=== PATIENT | female | born 1985 | race Caucasian/White ===

== ENCOUNTER → 2017-02-20 | Outpatient (CLI) | payer SELFPAY ==
[2017-02-20 12:44] LABS: Basophils % (A) 1 %; CH 29.4; CHCM 33.6; Eosinophils # (A) 0.1 k/uL (0-0.7); Eosinophils % (A) 1 %; HCT 39.9 % (34.0-46.0); HDW 2.46; HGB 13.6 gm/dL (11.4-16.0); Luc # (Auto) 0.18; Luc % (Auto) 2; Lymphocytes # (A) 2.3 k/uL (1.0-4.8); Lymphocytes % (A) 30 %; MCHC 34.2 g/dL (31.0-37.0); MCV 87.7 fL (80.0-100.0); Mean Platelet Volume 7.4; Monocytes # (A) 0.5 k/uL (0-1.0); Monocytes % (A) 6 %; Neutrophils # (A) 4.7 k/uL (1.3-7.7); Neutrophils % (A) 60 %; RBC 4.54 m/uL (3.80-5.40); RDW 12.5 % (11.5-15.5); WBC 7.8 k/uL (3.8-10.6); WBC (Perox) 7.53
== END | disposition home or self-care (01) ==
LOC: LABWHC1 12:27
PROVIDERS: ATTEND Specialist
DX: Z01.812 Encounter for preprocedural laboratory examination (principal)
CPT/HCPCS: 36415; 85025

== ENCOUNTER → 2017-07-05 | Outpatient (CLI) | payer SELFPAY ==
[2017-07-05 12:53] LABS: CH 29.2; CHCM 32.6; HDW 2.46; HGB 13.5 gm/dL (11.4-16.0); MCH 29.6 pg (25.0-35.0); MCV 89.9 fL (80.0-100.0); Mean Platelet Volume 6.8; RBC 4.56 m/uL (3.80-5.40); RDW 12.3 % (11.5-15.5); WBC 8.4 k/uL (3.8-10.6)
== END | disposition home or self-care (01) ==
LOC: LABWHC1 12:25
PROVIDERS: ATTEND Obstetrics & Gynecology
DX: O20.0 Threatened abortion (principal); Z3A.00 Weeks of gestation of pregnancy not specified
CPT/HCPCS: 36415; 84702; 85027; 86850; 86900; 86901

== ENCOUNTER → 2017-07-07 | Outpatient (CLI) | payer SELFPAY | END | disposition home or self-care (01) | LOC: LABWHC1 16:36 | PROVIDERS: ATTEND Obstetrics & Gynecology | DX: O20.0 Threatened abortion (principal) | CPT/HCPCS: 36415; 84702 ==

== ENCOUNTER 2017-12-30 20:35 | Outpatient (CLI) | payer OTHER ==
[2017-12-30 21:40] VITALS: BP 135/71; PULSE 135; RESP 16; TEMP 97.4
--- NOTE | 2017-12-30 22:06 | US ---
EXAMINATION TYPE: US OB >= 14 wk fetus DATE OF EXAM: 12/30/2017 COMPARISON: None CLINICAL HISTORY: BleedingBleeding x 1 time today not currently. TECHNIQUE: Transabdominal (TA) GESTATIONAL AGE / DATING Physician Established: (30 weeks/2 days) EDC: 03/08/2018 Dates by LMP: (30 weeks/2 days) EDC: 03/08/2018 Dates by First Scan: No previous this is first scan Dates by Current Scan: (31 weeks/1 days) EDC: 02/28/2018 SURVEY IUP: Single PLACENTA: Fundal PREVIA: No Previa MARISELA: 18.2 cm Normal CERVICAL LENGTH (transabdominal: norm > 3.0cm): 3.6 cm BIOMETRY PRESENTATION: Breech LIE: Longitudinal BPD: 8.1 cm 32 weeks / 3 days HC: 29.3 cm 32 weeks / 3 days AC: 27 cm 31 weeks / 1 days FL: 6.1 cm 31 weeks / 4 days ESTIMATED WEIGHT IN GRAMS: 1769 grams ESTIMATED WEIGHT IN LBS/OZ: 3 lbs. 14 oz. WEIGHT PERCENTAGE BASED ON ESTABLISHED DATES: 77.7% HC/AC: 1.09cm Normal FL/AC: 75.1 Normal HEART RATE: 153 bpm RHYTHM: Normal MATERNAL WALL MEASUREMENT: 2.4 cm from skin to anterior uterine wall (if exam limited due to body hab itus). Viable IUP 31w3d YOVANNY 02/28/2018 HR 153BPM IMPRESSION: Viable IUP 31w3d YOVANNY 02/28/2018 HR 153BPM
--- NOTE | 2018-01-17 08:24 | P.MSEPDOC ---
Presenting Problems - Arrival Data Date of Arrival on Unit: 12/30/17 Time of Arrival on Unit: 20:35 Mode of Transport: Portable - Complaint OB-Reason for Admission/Chief Complaint: Vaginal Bleeding Medical History - Information : 4 Para: 3 Term: 3 : 0 Abortions: Spontaneous or Elective: 0 Number of Living Children: 3 - Gestational Age Gestational Age by YOVANNY (wks/days): 30 Weeks and 2 Days - History Complications: Prior Review of Systems - Review of Systems Constitutional: No problems Breast: No problems ENT: No problems Cardiovascular: No problems Respiratory: No problems Gastrointestinal: No problems Genitourinary: No problems Musculoskeletal: No problems Neurological: No problems Skin: No problems Vital Signs - Temperature Temperature: 97.4 F Temperature Source: Oral - Pulse Right Brachial Pulse Rate: 135 Pulse Assessment Method: Automatic Cuff - Respirations Respiratory Rate: 16 Oxygen Delivery Method: Room Air O2 Sat by Pulse Oximetry: 97 - Blood Pressure Right Arm Blood Pressure: 135/71 Blood Pressure Mean: 92 Blood Pressure Source: Automatic Cuff Medical Screen Scoring (Pre) - Cervical Exam Dilation: Exam Deferred Effacement: Exam Deferred Membranes: Intact - Uterine Contractions Frequency: N/A - Maternal Vital Signs Maternal Temperature: N/A Maternal Blood Pressure: N/A Signs of Preeclampsia: N/A Maternal Respirations: N/A - Pain Assessment Pain Scale Used: Numeric (1 - 10) Pain Intensity: 0 - Assessment Baseline FHR: 140 Heart Rate - NICHD Category: Category I (Normal) = 0 NST: Reactive Position: N/A Station: N/A - Total Score Total Score (Pre): 0 - Level of Risk Level of Risk: Low (0-5) Physician Notification (Pre) - Physician Notified Physician Notified Date: 12/30/17 Physician Notified Time: 21:16 Physician/Practitioner Notifed:: Dr. Davis Spoke With: Dr. Davis New Order Received: Yes - Notification Comment Comment: Dr. Davis called and given report on pt in triage. Pt c/o. reactive nst. Vitals signs. No visualized bright red bleeding. Spec exam with visualized old brown blood and white discharge on spec. Orders recieved to monitor pt for next to hours and to watch for bleeding. To order complete OB u/ s and to call with results. Medical Screen Scoring (Post) - Cervical Exam Dilation: Exam Deferred Effacement: Exam Deferred Membranes: Intact - Uterine Contractions Frequency: N/A Duration: N/A Intensity: N/A - Maternal Vital Signs Maternal Temperature: N/A Maternal Blood Pressure: N/A Signs of Preeclampsia: N/A - Pain Assessment Pain Scale Used: Numeric (1 - 10) Pain Intensity: 0 - Total Score Total Score (Post): 0 - Post Treatment Level of Risk Post Treatment Level of Risk: Low (0-5) Physician Notification (Post) - Physician Notified Physician Notified Date: 12/30/17 Physician Notified Time: 21:53 Physician/Practitioner Notified:: Dr. Davis Spoke With: Dr. Davis New Order Received: Yes - Notification Comment Comment: Dr. Davis called and given results of u/s. Orders recieved to continue to monitor pt for two hours and watch for vaginal bleeding. If no bleeding d/c pt to home, to be on pelvic rest and to call and follow up with Dr. Cornejo in the am and to be seen in office. Disposition - Disposition OB Disposition: Discharge to home Discharge Date: 12/30/17 Discharge Time: 23:20 I agree with the RN Medical Screening Exam: Yes Risk & Benefit of care provided described in d/c instruction: Yes Diagnosis: 30 WEEKS GESTATION OF
== END 2017-12-30 23:20 | disposition home or self-care (01) ==
LOC: FBPOP 20:35
PROVIDERS: ATTEND Obstetrics & Gynecology
DX: O46.93 Antepartum hemorrhage, unspecified, third trimester (principal); Z3A.30 30 weeks gestation of pregnancy
CPT/HCPCS: 59025; 76805; G0463; 99213

== ENCOUNTER 2018-02-23 16:14 | Outpatient (CLI) | payer OTHER ==
[2018-02-23 17:07] VITALS: BP 134/79; PULSE 80; RESP 18
[2018-02-23 17:08] VITALS: TEMP 97.2
--- NOTE | 2018-03-11 13:46 | P.MSEPDOC ---
Presenting Problems - Arrival Data Date of Arrival on Unit: 02/23/18 Time of Arrival on Unit: 16:15 Mode of Transport: Ambulatory - Complaint OB-Reason for Admission/Chief Complaint: Other Comment: Cramping Medical History - Information : 4 Para: 3 Term: 3 : 0 Abortions: Spontaneous or Elective: 0 Number of Living Children: 3 - Gestational Age Gestational Age by YOVANNY (wks/days): 37 Weeks and 3 Days - History Comment: Vaginal bleeding on and off x 2months. Review of Systems - Review of Systems Constitutional: No problems Breast: No problems ENT: No problems Cardiovascular: No problems Respiratory: No problems Gastrointestinal: No problems Genitourinary: No problems Musculoskeletal: No problems Neurological: No problems Skin: No problems Vital Signs - Temperature Temperature: 97.2 F Temperature Source: Oral - Pulse Pulse Oximetery Pulse Rate: 80 Pulse Assessment Method: Pulse Oximetry - Respirations Respiratory Rate: 18 - Blood Pressure Right Arm Sitting Blood Pressure: 134/79 Blood Pressure Mean: 97 Blood Pressure Source: Automatic Cuff Medical Screen Scoring (Pre) - Cervical Exam Dilation: Exam Deferred Effacement: Exam Deferred Membranes: Intact - Uterine Contractions Frequency: N/A Duration: N/A Intensity: N/A - Maternal Vital Signs Maternal Temperature: N/A Maternal Blood Pressure: N/A Signs of Preeclampsia: N/A Maternal Respirations: N/A - Pain Assessment Pain Location and Character: Abdomen Pain Scale Used: Numeric (1 - 10) Pain Intensity: 3 Pain Description: *Acute, Cramping Pain Frequency: Intermittent Pain Duration Units: Minutes Pain Behavior: None Exhibited Pain Aggravating Factors: None Non-Pharmacological Interventions: Environmental Control, Reduce Environmental Stimuli - Maternal Trauma Maternal Trauma: N/A - Assessment Baseline FHR: 130 Heart Rate - NICHD Category: Category I (Normal) = 0 NST: Reactive Position: N/A Station: N/A - Total Score Total Score (Pre): 0 - Level of Risk Level of Risk: Low (0-5) Physician Notification (Pre) - Physician Notified Physician Notified Date: 02/23/18 Physician Notified Time: 16:40 Physician/Practitioner Notifed:: Dr Smith Spoke With: Dr Smith New Order Received: Yes Disposition - Disposition OB Disposition: Discharge to home Discharge Date: 02/23/18 Discharge Time: 17:25 I agree with the RN Medical Screening Exam: Yes Risk & Benefit of care provided described in d/c instruction: Yes Diagnosis: FALSE LABOR AT OR AFTER 37 COMPLETED WEEKS OF GESTATION
== END 2018-02-23 17:25 | disposition home or self-care (01) ==
LOC: FBPOP 16:14
PROVIDERS: ATTEND Obstetrics & Gynecology Obstetrics
DX: O47.1 False labor at or after 37 completed weeks of gestation (principal); Z3A.37 37 weeks gestation of pregnancy
CPT/HCPCS: 59025; G0463; 99213

== ENCOUNTER 2018-03-05 06:22 | Inpatient (IN) | payer OTHER ==
[2018-03-05] MEDS ORDERED: CITRIC ACID-SODIUM CITRATE 15 ML CUP PO ONE (06:47)
[2018-03-05] MEDS ORDERED: ceFAZolin IN SWFI 2 GM/20 ML SYRINGE IVP ONE (06:47)
[2018-03-05] MEDS ORDERED: LACTATED RINGERS 1,000 ML IV ONE (06:47)
[2018-03-05 07:00] VITALS: BMI 35.2
[2018-03-05 07:11] LABS: Basophils % (A) 0 %; Eosinophils # (A) 0.1 k/uL (0-0.7); Eosinophils % (A) 1 %; HCT 32.5 % (34.0-46.0); Hypochromasia Slight; Lymphocytes # (A) 1.8 k/uL (1.0-4.8); Lymphocytes % (A) 14 %; MCHC 33.8 g/dL (31.0-37.0); MCV 79.9 fL (80.0-100.0); Monocytes # (A) 0.5 k/uL (0-1.0); Monocytes % (A) 4 %; Neutrophils # (A) 10.3 k/uL (1.3-7.7); Neutrophils % (A) 80 %; Platelet Count 192 k/uL (150-450); Poikilocytosis Slight; RBC 4.06 m/uL (3.80-5.40)
[2018-03-05] MEDS ORDERED: KETOROLAC 30 MG/ML 1 ML VIAL ONE (07:15)
[2018-03-05] MEDS ORDERED: NALBUPHINE 10 MG/ML VIAL (10ML MDV) ONE (07:15)
[2018-03-05] MEDS ORDERED: OXYTOCIN 10 UNIT/ML 1 ML VIAL ONE (07:15)
[2018-03-05] MEDS ORDERED: fentaNYL (PF) 50 MCG/ML 2 ML AMP ONE (07:15)
[2018-03-05] MEDS ORDERED: ONDANSETRON 4 MG/2 ML VIAL ONE (07:15)
[2018-03-05] MEDS ORDERED: MORPHINE SULFATE (PF) 0.3 MG/0.3 ML SYR ONE (07:15)
--- NOTE | 2018-03-05 07:25 | P.HPOB ---
History of Present Illness H&P Date: 03/05/18 Chief Complaint: Strong regular uterine contractions This is a 32-year-old white female 4 para 3003 EDC 03/13/2018 at 38-6/7 weeks' gestation. Patient has had 3 previous sections and is declining option for . She is scheduled for section next week, however presents this morning with strong regular uterine contractions. Cervix is 4-5 cm dilated. Patient is in active labor and is requesting section at this time. Tubal ligation is offered and declined. Past medical history is significant for hypothyroidism, irritable bowel syndrome , and asthma. Past surgical history sections 3, tubal ligation in 2012 with reversal in 2016. Current medications albuterol inhaler twice daily as needed, Synthroid 50 MCG's daily, vitamin daily. ALLERGIES include latex to which reports a rash, Vicodin to which reports emesis. Family history significant for hypertension, stroke, kidney disease and vascular concerns. Social history patient is remarried, she's never been a smoker, she denies alcohol or drug use. history blood type is A-, rubella status immune. Urine culture, hepatitis B surface antigen, HIV testing, gonorrhea Chlamydia cultures, group B strep cultures all negative. One-hour Glucola elevated, 3 hour GTT within normal limits. On exam this is a pleasant white female, she is 5 foot 5 inches, 212 pounds, blood pressure initially 138/92, patient is afebrile. The general physical exam is within normal limits. Cervix is 4-5 cm dilated, vertex presentation, intact, 80% effaced, -1. heart rate is consistent with reactive NST. Patient's chest is clear to auscultation, trace peripheral edema. Impression: 38-6/7 weeks intrauterine , active labor, here for repeat section declining option for , declining option for tubal ligation. Plan: For repeat low transverse section now. Dr. Pina in the hospital and available for assistance. All questions answered. Review of Systems Constitutional: Reports as per HPI Past Medical History Past Medical History: Asthma, Thyroid Disorder History of Any Multi-Drug Resistant Organisms: None Reported Past Surgical History: Section Additional Past Surgical History / Comment(s): C section x 3, during 1 csection cervix was sewn shut so had a sx to reopen Past Anesthesia/Blood Transfusion Reactions: Family History of Problems w/ Anesthesia, Motion Sickness, Postoperative Nausea & Vomiting (PONV) Additional Past Anesthesia/Blood Transfusion Reaction / Comment(s): fam hx : PONV Past Psychological History: Anxiety Smoking Status: Never smoker Past Alcohol Use History: None Reported Additional Past Alcohol Use History / Comment(s): smoking: started [id number] Past Drug Use History: None Reported - Past Family History Mother Family Medical History: Cancer, Osteoarthritis (OA) Additional Family Medical History / Comment(s): Mom's mom: CA breast & colon Father Family Medical History: Rheumatoid Arthritis (RA) Medications and Allergies Home Medications Medication Instructions Recorded Confirmed Type Albuterol Inhaler [Ventolin Hfa 1 - 2 puff BID 04/20/15 03/05/18 History Inhaler] Pnv No.95/Ferrous Fum/Folic AC 1 each PO DAILY 12/30/17 03/05/18 History [ Multivitamin Tablet] Allergies Allergy/AdvReac Type Severity Reaction Status Date / Time codeine Allergy Nausea Verified 03/05/18 06:28 hydrocodone bitartrate Allergy Nausea & Verified 03/02/18 13:00 [From Vicodin] Vomiting & Diarrhea latex Allergy Rash/Hives Verified 03/02/18 13:00 Milk Containing Products Allergy Vomiting Verified 03/02/18 13:00 Exam - Vital Signs Vital signs: Vital Signs Temp Pulse Resp BP Pulse Ox 03/05/18 06:57 98.4 F 84 16 138/92 98 03/05/18 06:46 98.4 F 82 16 138/92 98 Intake and Output 03/04/18 03/05/18 03/05/18 22:59 06:59 14:59 Other: Weight 96.162 kg See dictation under HPI please Results Result Diagrams: 03/05/18 07:00 Abnormal Lab Results - Last 24 Hours (Table) 03/05/18 Range/Units 07:00 WBC 13.0 H (3.8-10.6) k/uL Hgb 11.0 L (11.4-16.0) gm/dL Hct 32.5 L (34.0-46.0) % MCV 79.9 L (80.0-100.0) fL RDW 16.0 H (11.5-15.5) % Neutrophils # 10.3 H (1.3-7.7) k/uL Assessment and Plan Plan: Repeat low transverse section now, antibiotics to be given, vaginal prep to be performed. Time with Patient: Less than 30
[2018-03-05] MEDS ORDERED: CELLULOSE,OXIDIZED 1 EACH EACH MISCELLANE ONE (07:45)
[2018-03-05] MEDS ORDERED: METOCLOPRAMIDE 5 MG/ML 2 ML VIAL IVP PRN (08:32)
[2018-03-05] MEDS ORDERED: ONDANSETRON 4 MG/2 ML VIAL IVP PRN (08:32)
[2018-03-05] MEDS ORDERED: diphenhydrAMINE 25 MG CAP PO PRN (08:32)
[2018-03-05] MEDS ORDERED: NALOXONE 0.4 MG/ML 1 ML VIAL IV PRN (08:32)
[2018-03-05] MEDS ORDERED: ZOLPIDEM 5 MG TAB PO PRN (08:32)
[2018-03-05] MEDS ORDERED: diphenhydrAMINE 50 MG/ML 1 ML VIAL IVP PRN ×2 (08:32)
[2018-03-05] MEDS ORDERED: ACETAMINOPHEN TAB 325 MG TAB PO PRN (08:32)
[2018-03-05] MEDS ORDERED: diphenhydrAMINE 50 MG CAP PO PRN (08:32)
[2018-03-05] MEDS ORDERED: HYDROcodone/APAP 5-325MG 1 EACH TAB PO PRN (08:32)
[2018-03-05] MEDS ORDERED: IBUPROFEN 600 MG TAB PO PRN (08:32)
--- NOTE | 2018-03-05 08:32 | P.OP ---
Date of Procedure: 03/05/18 Preoperative Diagnosis: 3 previous sections, active labor, 38-6/7 weeks' Postoperative Diagnosis: Liveborn female infant, multiple omental, uterine and bladder adhesions Procedure(s) Performed: Repeat low transverse section, adhesiolysis, placement of Interceed Anesthesia: spinal Surgeon: Bibi Marte Guard Immigration #1: Mal Pina Estimated Blood Loss (ml): 800 IV fluids (ml): 1,200 Urine output (ml): 50 Pathology: other (Placenta) Condition: stable Disposition: PACU (Multiple adhesions involving the omentum to the right round ligament and tube, right lateral uterine wall, and bladder. Very high bladder flap noted over the lower uterine segment. Thin lower uterine segment.) Description of Procedure: Patient is brought to the operating suite, antibiotics are given, vaginal prep is performed, Gerber placed to direct drainage. Spinal analgesia is placed per Dr. Minaya. Patient is placed in the dorsal supine position with left lateral uterine displacement. Abdomen is prepped and draped in the usual sterile fashion. Tubal ligation is offered and declined. The analgesia is checked and noted to be normal. The appropriate timeout is performed to assure proper patient and procedural identification. A repeat low transverse skin incision is made in this is carried down through the subcutaneous tissue which is approximately 2 cm deep. Fascia is encountered , the fascia is very thick and scarred. It is opened, peritoneal cavity is entered. Upon entering the peritoneal cavity multiple adhesions are noted involving the omentum to the right lateral uterine side wall, the right fallopian tube and round ligament. In addition, the bladder flap was very high. Care is taken to take the omental adhesions down carefully with electrocautery. A bladder flap was partially created, the bladder is at all times Well from the operative field, the lower uterine segment is extremely thin. A low transverse uterine incision is made in this is extended bilaterally. The incision is "teed up" for approximately 2 cm to allow for adequate room. 's head is delivered occiput anterior there is no nuchal cord noted. The oropharynx, nasopharynx and external nares are bulb suctioned on the abdomen. Patient is officially delivered of a liveborn female at 0745 hours. Umbilical cord is doubly clamped and ligated, she is handed to waiting nurses for evaluation where scores of 9 and 9 at one and 5 minutes respectively are given. The placenta is delivered manually, it is inspected and noted to be intact with trivascular cord at 0746 hours. At this time the uterus is externalized and massaged. It is swept clean with a sterile sponge to avoid any retained products of conception. The uterus is closed in the usual fashion, first layer with 0 Vicryl in a running locking stitch, second layer in an imbricated stitch. Good approximation is noted. Bilateral tubes and ovaries appear healthy and normal. The abdomen is suctioned with suction on guard and the uterus is placed back into the abdominal cavity. Bilateral gutters are inspected and cleaned. All garcia are hemostatically intact. A piece of Interceed is placed over the uterine incision to help avoid subsequent adhesion formation. Fascia is closed in a running stitch of 0 Vicryl with over ligation in the midline. Subcutaneous tissue is reapproximated with 3-0 Vicryl in a running fashion. 4-0 undyed Monocryl is used for final skin closure. Steri-Strips and Mastisol are applied to the wound. Abdominal binder is placed. Gerber is noted to be draining clear urine. Patient is brought back to recovery room in very good condition with stable vital signs including a pulse of 66, blood pressure 131/76, 99% O2 saturation. Infant weighs 3930 g or 8 lbs. 11 oz.
[2018-03-05] MEDS: LACTATED RINGERS 1,000 ML IV SCH ×5 (08:33→22:46)
[2018-03-05] MEDS ORDERED: Rhogam IMMUNE GLOBULIN 1,500 UNIT/1 ML IM ONE (12:05)
[2018-03-05] MEDS: KETOROLAC 30 MG/ML 1 ML VIAL IVP PRN ×2 (14:08→22:05)
[2018-03-05] MEDS: SENNOSIDES-DOCUSATE SODIUM 1 EACH TAB PO SCH (22:06)
[2018-03-06] MEDS: LACTATED RINGERS 1,000 ML IV SCH ×3 (01:19→11:07)
[2018-03-06] MEDS: KETOROLAC 30 MG/ML 1 ML VIAL IVP PRN (05:11)
[2018-03-06 07:33] LABS: Anisocytosis Slight; Basophils % (A) 0 %; Eosinophils % (A) 0 %; HCT 20.1 % (34.0-46.0); Hypochromasia Slight; Lymphocytes # (A) 1.2 k/uL (1.0-4.8); Lymphocytes % (A) 11 %; MCH 26.2 pg (25.0-35.0); MCHC 31.8 g/dL (31.0-37.0); MCV 82.2 fL (80.0-100.0); Mean Platelet Volume 9.8; Monocytes # (A) 0.5 k/uL (0-1.0); Monocytes % (A) 4 %; Neutrophils # (A) 8.6 k/uL (1.3-7.7); Neutrophils % (A) 83 %; Platelet Count 134 k/uL (150-450); Poikilocytosis Slight; RBC 2.45 m/uL (3.80-5.40); RDW 16.4 % (11.5-15.5); WBC 10.4 k/uL (3.8-10.6)
[2018-03-06 07:36] LABS: HGB 6.4 gm/dL (11.4-16.0)
[2018-03-06] MEDS: SENNOSIDES-DOCUSATE SODIUM 1 EACH TAB PO SCH (09:03)
--- NOTE | 2018-03-06 10:47 | P.DS ---
Providers Date of admission: 03/05/18 06:40 Expected date of discharge: 03/06/18 Attending physician: Jennifer Cornejo Primary care physician: Stated None Hospital Course: This is a 32-year-old white female 4 para 3003 EDC 03/13/2018 at 38-6/7 weeks' gestation. Patient has had 3 previous sections, a tubal ligation, tubal reversal, and a uterine revision. The plan was for section in 2 days, however [facility] with strong regular uterine contractions, cervix 4-5 cm dilated. Plan then was for repeat section, tubal ligation once again offered and declined. Please see admitting H&P for details. Patient underwent a repeat low transverse section. The uterus was noted to be quite scarred, there were adhesions involving the omentum, right lateral uterine sidewall, right fallopian tube and round ligament. Patient gave to a liveborn female with scores of 9 and 9 at one and 5 minutes respectively, she weighed 3930 g or 8 lbs. 11 oz. Interceed was placed on the lower uterine segment, please see dictated operative note for details. Patient has postoperative anemia, hemoglobin 6.4. She is feeling well however, denies lightheadedness or dizziness. She is voiding, ambulating, passing flatus without difficulty. Vital signs are stable and she is afebrile. The incision is clean and dry, well approximated, with Steri-Strips applied. Extremities reveal +1 edema, reflexes are normal. Uterus is firm, midline, symmetric, 18 week size, nontender. Breasts are not engorged. Chest is clear in all garcia. [place] infant is doing well. Patient is wishing discharge home later today. She will begin ferrous sulfate, 325 mg, twice daily. She will continue taking her vitamin daily. She will use [id number] Motrin products as needed for pain, 200 mg pills, 3 every 6 hours as needed. I've asked her to call me with any fevers shakes or chills, foul smelling or copious lochia, with the passage of large blood clots, with any lightheadedness or dizziness, with any difficulties breathing, or indeed with any concerns or questions. I have advised her that I do not recommend future pregnancies secondary to the condition of the uterus and lower uterine segment. She will discuss this further with her primary care physician in the office. No car driving, no heavy lifting, limited stair climbing, incision care is reviewed. will follow-up with package car driver as recommended. Patient Condition at Discharge: Good Plan - Discharge Summary New Discharge Prescriptions: No Action Albuterol Inhaler [Ventolin Hfa Inhaler] 1 - 2 puff BID Pnv No.95/Ferrous Fum/Folic AC [ Multivitamin Tablet] 1 each PO DAILY Discharge Medication List Albuterol Inhaler [Ventolin Hfa Inhaler] 1 - 2 puff BID 04/20/15 [History] Pnv No.95/Ferrous Fum/Folic AC [ Multivitamin Tablet] 1 each PO DAILY [History] Follow up Appointment(s)/Referral(s): Jennifer Cornejo DO [Doctor of Osteopathic Medicine] - 2 Weeks
[2018-03-06] MEDS ORDERED: METOCLOPRAMIDE 5 MG/ML 2 ML VIAL IVP PRN (11:10)
[2018-03-06] MEDS ORDERED: diphenhydrAMINE 50 MG/ML 1 ML VIAL IVP PRN ×2 (11:10)
[2018-03-06] MEDS ORDERED: diphenhydrAMINE 50 MG CAP PO PRN (11:10)
[2018-03-06] MEDS ORDERED: ONDANSETRON 4 MG/2 ML VIAL IVP PRN (11:10)
[2018-03-06] MEDS ORDERED: NALOXONE 0.4 MG/ML 1 ML VIAL IV PRN (11:10)
[2018-03-06] MEDS ORDERED: IBUPROFEN 600 MG TAB PO PRN (11:10)
[2018-03-06] MEDS ORDERED: diphenhydrAMINE 25 MG CAP PO PRN (11:10)
[2018-03-06] MEDS ORDERED: ZOLPIDEM 5 MG TAB PO PRN (11:10)
[2018-03-06] MEDS ORDERED: ACETAMINOPHEN TAB 325 MG TAB PO PRN (11:10)
--- NOTE | 2018-03-06 17:16 | P.PN ---
Progress Note - Text Progress Note Date: 03/06/18 Postoperative day 1 status post section under spinal anesthesia, and intrathecal morphine given for postoperative analgesia, patient doing well, there is no paresthesia related complications, further management as per her primary team. Patient is ambulating well, and set for discharge today.
[2018-03-06 18:15] VITALS: BP 129/56; PULSE 100; RESP 18; TEMP 98.1
[2018-03-06] MEDS ORDERED: SENNOSIDES-DOCUSATE SODIUM 1 EACH TAB PO SCH (20:00)
--- NOTE | 2018-03-17 09:24 | CDI ---
Last Revision, September 2017 Documentation Clarification Form Date: 03/17/2018 12:00:00 AM From: SOFIYA Ling; Dagmar Howard Mechanic And Welder Phone: If you have a question about this query, please contact Dagmar Howard Mechanic And Welder at [phone] between 8am and 5pm. Admit Date: 03/05/2018 6:40:00 AM Patient Name: Sophie Chavira Visit Number: [id number] Discharge Date: 03/06/2018 ATTENTION: The Clinical Documentation Specialists (CDI) and [facility] Coding Staff appreciate your assistance in clarifying documentation. Please respond to the clarification below the line at the bottom and electronically sign. The CDI & [facility] Coding staff will review the response and follow-up if needed. Please note: Queries are made part of the Legal Health Record. If you have any questions, please contact the author of this message via ITS. Dr. Bibi Marte A diagnosis of postoperative anemia lacks specificity to accurately reflect your patients severity of condition and clarification is needed. History/Risk Factors: Repeat . Admission HGB 11.0, dropped to 6.4 after surgery Discharge medications included iron supplement. In order to capture the severity of condition, please clarify the type of anemia and etiology if known: Acute blood loss anemia Acute on chronic blood loss anemia Chronic blood loss anemia Unable to determine Other, please specify MTDD
--- NOTE | 2018-03-22 15:02 | CDI ---
Documentation Clarification Form Date: 03/22/2018 12:00:00 AM From: SOFIYA Ling; Dagmar Howard Title Attorney Phone: If you have a question about this query, please contact Dagmar Howard Title Attorney at [phone] between 8am and 5pm. Admit Date: 03/05/2018 6:40:00 AM Patient Name: Sophie Chavira Visit Number: [id number] Discharge Date: 03/06/2018 ATTENTION: The Clinical Documentation Specialists (CDI) and [facility] Coding Staff appreciate your assistance in clarifying documentation. Please respond to the clarification below the line at the bottom and electronically sign. The CDI & [facility] Coding staff will review the response and follow-up if needed. Please note: Queries are made part of the Legal Health Record. If you have any questions, please contact the author of this message via ITS. Dr. Bibi Marte A diagnosis of postoperative anemia lacks specificity to accurately reflect your patients severity of condition and clarification is needed. History/Risk Factors: Repeat . Admission HGB 11.0, dropped to 6.4 after surgery Discharge medications included iron supplement. In order to capture the severity of condition, please clarify the type of anemia and etiology if known: Acute blood loss anemia Acute on chronic blood loss anemia Chronic blood loss anemia Unable to determine Other, please specify MTDD
--- NOTE | 2018-03-28 10:32 | CDI ---
Documentation Clarification Form Date: 03/28/2018 12:00:00 AM From: SOFIYA Ling; Dagmar Howard [employer] Business Representative Phone: If you have a question about this query, please contact Dagmar Howard [employer] Business Representative at [phone] between 8am and 5pm. Admit Date: 03/05/2018 6:40:00 AM Patient Name: Sophie Chavira Visit Number: [id number] Discharge Date: 03/06/2018 ATTENTION: The Clinical Documentation Specialists (CDI) and [facility] Coding Staff appreciate your assistance in clarifying documentation. Please respond to the clarification below the line at the bottom and electronically sign. The CDI & [facility] Coding staff will review the response and follow-up if needed. Please note: Queries are made part of the Legal Health Record. If you have any questions, please contact the author of this message via ITS. Dr. Bibi Marte A diagnosis of postoperative anemia lacks specificity to accurately reflect your patients severity of condition and clarification is needed. History/Risk Factors: Repeat . Admission HGB 11.0, dropped to 6.4 after surgery EBL per op report = 800 Discharge medications included iron supplement. In order to capture the severity of condition, please clarify the type of anemia and etiology if known: Also, is this expected outcome from procedure or unexpected? Acute blood loss anemia Acute on chronic blood loss anemia Chronic blood loss anemia Unable to determine Other, please specify MTDD
--- NOTE | 2018-04-05 09:14 | CDI ---
Documentation Clarification Form Date: 04/05/2018 12:00:00 AM From: SOFIYA Ling; Dagmar Howard Orthodontic Treatment Coordinator Phone: If you have a question about this query, please contact Dagmar Howard Orthodontic Treatment Coordinator at [phone] between 8am and 5pm. Admit Date: 03/05/2018 6:40:00 AM Patient Name: Sophie Chavira Visit Number: [id number] Discharge Date: 03/06/2018 ATTENTION: The Clinical Documentation Specialists (CDI) and [facility] Coding Staff appreciate your assistance in clarifying documentation. Please respond to the clarification below the line at the bottom and electronically sign. The CDI & [facility] Coding staff will review the response and follow-up if needed. Please note: Queries are made part of the Legal Health Record. If you have any questions, please contact the author of this message via ITS. Dr. Bibi Marte A diagnosis of postoperative anemia lacks specificity to accurately reflect your patients severity of condition and clarification is needed. History/Risk Factors: Repeat . Admission HGB 11.0, dropped to 6.4 after surgery Discharge medications included iron supplement. In order to capture the severity of condition, please clarify the type of anemia and etiology if known: Acute blood loss anemia Acute on chronic blood loss anemia Chronic blood loss anemia Unable to determine Other, please specify MTDD
--- NOTE | 2018-04-07 16:31 | CDI ---
Documentation Clarification Form Date: 03/17/2018 12:00:00 AM From: Cathleendandy Loya Phone: Admit Date: 03/05/2018 6:40:00 AM Patient Name: Sophie Chavira Visit Number: [id number] Discharge Date: ATTENTION: The Clinical Documentation Specialists (CDI) and [facility] Coding Staff appreciate your assistance in clarifying documentation. Please respond to the clarification below the line at the bottom and electronically sign. The CDI & [facility] Coding staff will review the response and follow-up if needed. Please note: Queries are made part of the Legal Health Record. If you have any questions, please contact the author of this message via ITS. Date: 04/07/18 From: SOFIYA Ling; Dagmar Howard, Data Processing Specialist Phone: If you have a question, please contact Data Processing Specialist at [phone] between 8am and 5pm. Admit Date: 03/05/2018 6:40:00 AM Patient Name: Sophie Chavira Visit Number: [id number] Discharge Date: 03/06/2018 Dr. Bibi Marte Postoperative anemia is documented. However, it lacks specificity to accurately reflect your patients severity of condition and clarification is needed. Procedure:Repeat . EBL = 800 Admission HGB 11.0, dropped to 6.4 after surgery Discharge medications included iron supplement. In order to capture the severity of condition, please clarify the type of anemia and etiology if known: Acute blood loss anemia Acute on chronic blood loss anemia Chronic blood loss anemia Unable to determine Other, please specify Also, please indicate if the postop anemia is considered: an unexpected complication of the procedure an expected complication of the procedure not related to the procedure 04/11/18- 8:01am- Acute blood loss anemia- expected-no transfusion required MTDD
== END 2018-03-06 18:00 | disposition home or self-care (01) | DRG 765 ==
LOC: FBPOP 06:22 → 4FBP 06:40
PROVIDERS: ADMIT Obstetrics & Gynecology; ATTEND Obstetrics & Gynecology Obstetrics
PROC: 10D00Z1 Extraction of Products of Conception, Low, Open Approach (ICD-10-PCS; principal; 2018-03-05 07:36)
PROC: 0UU Female Reproductive System, Supplement (ICD-10-PCS; principal; 2018-03-05 07:36)
DX: O34.211 Maternal care for low transverse scar from previous cesarean delivery (principal); D62 Acute posthemorrhagic anemia; Z37.0 Single live birth; O99.52 Diseases of the respiratory system complicating childbirth; J45.909 Unspecified asthma, uncomplicated; Z88.5 Allergy status to narcotic agent; Z91.040 Latex allergy status; Z91.011 Allergy to milk products; Z87.891 Personal history of nicotine dependence; O90.81 Anemia of the puerperium; Z3A.38 38 weeks gestation of pregnancy; Z82.3 Family history of stroke; Z82.49 Family history of ischemic heart disease and other diseases of the circulatory system
CPT/HCPCS: 59025; 85025; 85461; 86850; 86900; 86901; 88307; 99213

== ENCOUNTER → 2018-05-19 | Outpatient (CLI) | payer OTHER ==
--- NOTE | 2018-05-19 09:33 | XR ---
EXAMINATION TYPE: XR knee limited RT DATE OF EXAM: 05/19/2018 CLINICAL HISTORY: Lateral pain after fall injury last week. TECHNIQUE: Two views of the right knee are obtained. COMPARISON: Bilateral knee x-ray January 10, 2015. FINDINGS: There is no acute fracture/dislocation evident in right knee. The tri-compartment joint s paces appear within normal limits. A posterior fabella is redemonstrated. The overlying soft tissue a ppears unremarkable. IMPRESSION: There is no acute fracture or dislocation in the right knee.
== END | disposition home or self-care (01) ==
LOC: RADXRYALE 08:34
PROVIDERS: ATTEND Internal Medicine
DX: M25.561 Pain in right knee (principal)

== ENCOUNTER → 2018-06-01 | Outpatient (CLI) | payer OTHER ==
--- NOTE | 2018-06-02 07:42 | MR ---
EXAMINATION TYPE: MR brain wo/w con DATE OF EXAM: 06/01/2018 COMPARISON: NONE HISTORY: Numbness, weakness in left upper and lower extremity for one year TECHNIQUE: Multiplanar, multisequence images of the brain and brainstem is performed without and with IV contras t, utilizing 9ml mL intravenous Gadavist . FINDINGS: Diffusion weighted images demonstrate no evidence of a recent infarct or other diffusion ab normality. There is no extra-axial fluid collection or significant white matter signal abnormality. The ventricular system and cisternal spaces are normal in size and appearance. The brain volume is age appropriate. Midline structures demonstrate normal morphology. The craniocervical junction appears within normal limits. Post contrast images demonstrate no abnormal enhancement. The dural venous sinuses appear pa tent. The visualized sinuses are clear. Distortion at level of globes is noted. IMPRESSION: No evidence of a recent infarct. No abnormal white matter changes identified. No signific ant finding is seen to account for patient's symptoms.
== END | disposition home or self-care (01) ==
LOC: RADMRIMAIN 17:41
PROVIDERS: ATTEND Internal Medicine
DX: R20.0 Anesthesia of skin (principal)
CPT/HCPCS: 70553; A9581

== ENCOUNTER → 2018-10-21 | Outpatient (CLI) | payer OTHER ==
--- NOTE | 2018-10-21 14:12 | XR ---
EXAMINATION TYPE: XR thoracic spine complete DATE OF EXAM: 10/21/2018 CLINICAL HISTORY: Patient with thoracic back pain TECHNIQUE: Frontal, lateral, and swimmer's view of thoracic spine are obtained. COMPARISON: None. FINDINGS: Thoracic spine show satisfactory alignment without evidence of acute fracture or dislocatio n. Vertebral body heights and disc space heights are preserved. Visualized ribs are unremarkable. Very minimal degenerative changes of the upper thoracic spine are seen as very minimal anterior osteo phytes. IMPRESSION: No acute fracture or dislocation is seen in the thoracic spine.
--- NOTE | 2018-10-21 14:31 | XR ---
Lumbar spine HISTORY: Pain 3 views of the lumbar spine Lumbar vertebral bodies show preserved height and alignment. Disc spaces are mildly reduced at L5-S1, L2-3 with associated spondylosis. No paraspinal mass. IMPRESSION: Mild degenerative disc disease. Lumbar MRI may be of benefit.
== END | disposition home or self-care (01) ==
LOC: RADXRYALE 13:16
PROVIDERS: ATTEND Internal Medicine
DX: M51.36 Other intervertebral disc degeneration, lumbar region (principal)
CPT/HCPCS: 72072; 72100

== ENCOUNTER → 2018-10-24 | Outpatient (CLI) | payer OTHER ==
--- NOTE | 2018-10-24 11:58 | XR ---
EXAMINATION TYPE: XR abdomen 1V DATE OF EXAM: 10/24/2018 11:17 AM CLINICAL HISTORY: Increasing left flank pain for one month TECHNIQUE: Single supine KUB image of the abdomen is obtained. COMPARISON: None. FINDINGS: Scattered gas is seen in nondilated small bowel loops. Gas and fecal material is seen in no ndilated colon. There is no calcification appreciated. The lung bases are clear and the osseous struc tures are intact. IMPRESSION: 1. Nonobstructive bowel gas pattern with mild amount of retained colonic stool. 2. No radiographic evidence of nephrolithiasis.
== END | disposition home or self-care (01) ==
LOC: RADXRYALE 10:55
PROVIDERS: ATTEND Internal Medicine
DX: M54.5 Low back pain (principal)
CPT/HCPCS: 74018

== ENCOUNTER → 2019-02-20 | Outpatient (CLI) | payer OTHER | END | disposition home or self-care (01) | LOC: LABWHC1 11:25 | PROVIDERS: ATTEND Obstetrics & Gynecology Obstetrics | DX: O20.0 Threatened abortion (principal); Z3A.00 Weeks of gestation of pregnancy not specified | CPT/HCPCS: 36415; 84702 ==

== ENCOUNTER → 2019-02-22 | Outpatient (CLI) | payer OTHER | END | disposition home or self-care (01) | LOC: LABWHC1 12:20 | PROVIDERS: ATTEND Obstetrics & Gynecology Obstetrics | DX: O20.0 Threatened abortion (principal) | CPT/HCPCS: 36415; 84702 ==

== ENCOUNTER → 2019-02-23 | Outpatient (CLI) | payer OTHER ==
[~2019-02-23] MED LIST: METHOTREXATE SODIUM (PF) 25 MG/ML 2 ML VIAL IM ONE
[2019-02-23 15:18] VITALS: BP 112/78; PULSE 80; RESP 16; TEMP 97.8
== END | disposition home or self-care (01) ==
LOC: PROCWHC3 14:46
PROVIDERS: ATTEND Obstetrics & Gynecology Obstetrics
DX: O00.109 Unspecified tubal pregnancy without intrauterine pregnancy (principal); Z3A.00 Weeks of gestation of pregnancy not specified
CPT/HCPCS: 96402; J9260

== ENCOUNTER → 2019-02-23 | Outpatient (CLI) | payer OTHER ==
--- NOTE | 2019-02-23 13:52 | US ---
EXAMINATION TYPE: Transabdominal DATE OF EXAM: 02/23/2019 1:32 PM COMPARISON: NONE CLINICAL HISTORY: O46.91 Antepartum hemorrhage, unspecified. Vaginal bleeding for 3 days EXAM PERFORMED: Transvaginal (TV) and Transabdominal (TA) EXAM MEASUREMENTS: GESTATIONAL AGE / DATING Physician Established: Not yet established Dates by LMP: unknown Dates by First Scan: No previous this is first scan Dates by Current Scan for: No IUP seen at this time MATERNAL ANATOMY Uterus: 10.9 x 4.3 x 6.3cm Right Ovary: 3.5 x 2.1 x 3.3cm Left Ovary: 2.9 x 1.7 x 2.9cm Post CDS / Adnexa: limitations due to large amount of overlying bowel Presence of free fluid: no GESTATION / SURVEY IUP: No IUP seen at this time Date of LMP: unknown Beta HcG (if available): 1414 No evidence of IUP at this time. Complex cysts within cervix. Large amount of overlying bowel conten t right adnexa, unable to rule out ectopic at this time. IMPRESSION: 1. No diagnostic evidence of intrauterine . There are complex cysts within the cervix. Diffe rential diagnosis includes normal too early to detect with complicated nabothian cysts, ect opic or missed . Correlate clinically and with serial beta hCG and pelvic ultrasoun d as clinically warranted.
== END | disposition home or self-care (01) ==
LOC: RADUSWWP 13:01
PROVIDERS: ATTEND Obstetrics & Gynecology Obstetrics
DX: N88.8 Other specified noninflammatory disorders of cervix uteri (principal)
CPT/HCPCS: 76801; 76817

== ENCOUNTER → 2019-02-23 | Outpatient (CLI) | payer OTHER ==
[2019-02-23 15:32] LABS: HCT 37.8 % (34.0-46.0); HGB 11.8 gm/dL (11.4-16.0); MCH 24.9 pg (25.0-35.0); MCHC 31.1 g/dL (31.0-37.0); MCV 79.9 fL (80.0-100.0); Platelet Count 278 k/uL (150-450); RBC 4.73 m/uL (3.80-5.40); RDW 15.1 % (11.5-15.5); WBC 7.2 k/uL (3.8-10.6)
[2019-02-24 00:15] LABS: HCG,Quantitative Serum 921.5 mIU/mL
== END | disposition home or self-care (01) ==
LOC: LABWHC1 14:35
PROVIDERS: ATTEND Obstetrics & Gynecology Obstetrics
DX: O00.109 Unspecified tubal pregnancy without intrauterine pregnancy (principal); Z3A.00 Weeks of gestation of pregnancy not specified
CPT/HCPCS: 36415; 82565; 84450; 84520; 84702; 85027

== ENCOUNTER → 2019-02-27 | Outpatient (CLI) | payer OTHER | END | disposition home or self-care (01) | LOC: LABWHC1 10:50 | PROVIDERS: ATTEND Obstetrics & Gynecology Obstetrics | DX: O00.109 Unspecified tubal pregnancy without intrauterine pregnancy (principal) | CPT/HCPCS: 36415; 84702 ==

== ENCOUNTER → 2019-03-01 | Outpatient (CLI) | payer OTHER ==
[2019-03-01 17:07] LABS: HCT 36.9 % (34.0-46.0); HGB 11.7 gm/dL (11.4-16.0); Hypochromasia Slight; MCH 25.5 pg (25.0-35.0); MCHC 31.6 g/dL (31.0-37.0); MCV 80.4 fL (80.0-100.0); Platelet Count 284 k/uL (150-450); RBC 4.58 m/uL (3.80-5.40); RDW 15.8 % (11.5-15.5); WBC 7.3 k/uL (3.8-10.6)
[2019-03-02 00:12] LABS: HCG,Quantitative Serum 116.7 mIU/mL
== END | disposition home or self-care (01) ==
LOC: LABWHC1 16:11
PROVIDERS: ATTEND Obstetrics & Gynecology Obstetrics
DX: O00.109 Unspecified tubal pregnancy without intrauterine pregnancy (principal); Z3A.00 Weeks of gestation of pregnancy not specified
CPT/HCPCS: 36415; 82565; 84450; 84520; 84702; 85027

== ENCOUNTER → 2019-04-20 | Outpatient (CLI) | payer OTHER ==
--- NOTE | 2019-04-20 12:08 | P.STRESS ---
- Stress Test Note Stress Test Results/Findings: Exam Performed: stress echo exercise Exam Date: 04/20/19 Reason for Exam: Vertigo/Palpitations Height: 5 ft 5 in Weight: 90.718 kg Protocol: Gildardo Stage: 3 Duration of Exercise: 9:13 Resting Heart Rate: 65 Resting Blood Pressure: 124/56 Maximum Achieved Heart Rate: 174 Maximum Achieved Blood Pressure: 174/78 85% PMHR: 159 100% PMHR: 187 METS: 10.3 Technologist Comment: Stress Test Results/Findings: This is a 34-year-old female with history of family history of ischemic heart disease being evaluated for chest pain, shortness of breath and palpitations. Stress data: Baseline EKG showed sinus rhythm with mild nonspecific ST-T abnormalities. Blood pressure at rest is about 124/56 with pulse rate of 65. Patient walked on the Gildardo protocol for 9 minutes and 13 seconds achieving a maximum rate of 174 with a blood pressure 165/87. EKGs taken during exercise showed diffuse mild nonspecific ST-T abnormalities which are not diagnostic for ischemia. Patient did not experience any chest pain but complained of chest tightness which she attributes to her asthma. No arrhythmias are noted. Echo data:. Baseline echo images showed normal wall motion and thickening. Exercise echo images showed augmentation of wall motion and thickening in all the segments. Final impression: #1. Negative stress test #2. Negative stress echo
== END | disposition home or self-care (01) ==
LOC: RADNMMAIN 09:51
PROVIDERS: ATTEND Internal Medicine Clinical Cardiac Electrophysiology
DX: R55 Syncope and collapse (principal); R00.2 Palpitations
CPT/HCPCS: 93351

== ENCOUNTER → 2019-05-12 | Outpatient (CLI) | payer OTHER ==
--- NOTE | 2019-05-13 13:54 | ECHOF ---
Referral Reason:R55 Syncope MEASUREMENTS -------- HEIGHT: 165.1 cm WEIGHT: 90.7 kg BP: 115/75 IVSd: 1.0 cm (0.6 - 1.1) LVIDd: 3.7 cm (3.9 - 5.3) LVPWd: 0.8 cm (0.6 - 1.1) IVSs: 1.2 cm LVIDs: 2.8 cm LVPWs: 1.3 cm LA Diam: 2.9 cm (2.7 - 3.8) RVIDd: 2.9 cm (< 3.3) LAESV Index (A-L): 22.42 ml/m Ao Diam: 2.2 cm (2.0 - 3.7) AV Cusp: 1.8 cm (1.5 - 2.6) EPSS: 0.7 cm MV E Ambrocio: 0.96 m/s MV DecT: 189 ms MV A Ambrocio: 0.72 m/s MV E/A Ratio: 1.33 RAP: 5.00 mmHg RVSP: 25.39 mmHg MV EF SLOPE: 99.95 mm/s (70 - 150) MV EXCURSION: 12.75 mm (> 18.000) FINDINGS -------- Sinus rhythm. This was a technically good study. The left ventricular size is normal. Left ventricular wall thickness is normal. Overall left vent ricular systolic function is normal with, an EF between 60 - 65 %. The right ventricle is normal in size. Normal LA size by volume 22+/-6 ml/m2. The right atrium is normal in size. Interatrial and interventricular septum intact. The aortic valve is trileaflet and appears structurally normal. Mild mitral regurgitation is present. Mild tricuspid regurgitation present. Right ventricular systolic pressure is normal at < 35 mmHg. Trace/mild (physiologic) pulmonic regurgitation. The aortic root size is normal. Normal inferior vena cava with normal inspiratory collapse consistent with estimated right atrial pre ssure of 5 mmHg. There is no pericardial effusion. CONCLUSIONS -------- 1. Sinus rhythm. 2. This was a technically good study. 3. The left ventricular size is normal. 4. Left ventricular wall thickness is normal. 5. Overall left ventricular systolic function is normal with, an EF between 60 - 65 %. 6. The right ventricle is normal in size. 7. Normal LA size by volume 22+/-6 ml/m2. 8. The right atrium is normal in size. 9. Interatrial and interventricular septum intact. 10. The aortic valve is trileaflet and appears structurally normal. 11. Mild mitral regurgitation is present. 12. Mild tricuspid regurgitation present. 13. Right ventricular systolic pressure is normal at < 35 mmHg. 14. Trace/mild (physiologic) pulmonic regurgitation. 15. The aortic root size is normal. 16. Normal inferior vena cava with normal inspiratory collapse consistent with estimated right atrial pressure of 5 mmHg. 17. There is no pericardial effusion. [employer]: Ricarda Stephenson RDCS
== END | disposition home or self-care (01) ==
LOC: RADECHMAIN 13:03
PROVIDERS: ATTEND Internal Medicine Clinical Cardiac Electrophysiology
DX: I08.1 Rheumatic disorders of both mitral and tricuspid valves (principal); R55 Syncope and collapse
CPT/HCPCS: 93306

== ENCOUNTER → 2019-05-13 | Outpatient (CLI) | payer OTHER ==
[2019-05-13 08:51] LABS: HCT 37.2 % (34.0-46.0); HGB 11.8 gm/dL (11.4-16.0); MCH 25.5 pg (25.0-35.0); MCHC 31.8 g/dL (31.0-37.0); MCV 80.2 fL (80.0-100.0); Mean Platelet Volume 7.2; Platelet Count 288 k/uL (150-450); RBC 4.64 m/uL (3.80-5.40); RDW 15.2 % (11.5-15.5)
[2019-05-13 08:56] LABS: African American GFR (CKD) >90 (>60 ml/min/1.73 sqM); Anion Gap 7 mmol/L; Blood Urea Nitrogen 14 mg/dL (7-17); Carbon Dioxide 27 mmol/L (22-30); Chloride 107 mmol/L (98-107); Glucose 99 mg/dL (74-99); Potassium 3.8 mmol/L (3.5-5.1); Sodium 141 mmol/L (137-145)
== END | disposition home or self-care (01) ==
LOC: LABPAT 08:11
PROVIDERS: ATTEND Internal Medicine Clinical Cardiac Electrophysiology
DX: Z01.812 Encounter for preprocedural laboratory examination (principal); R55 Syncope and collapse; R00.2 Palpitations
CPT/HCPCS: 36415; 80051; 82565; 82947; 84520; 85027

== ENCOUNTER 2019-05-25 06:56 | Day surgery (SDC) | payer OTHER ==
[2019-05-19 09:58] VITALS: BMI 33.3
[~2019-05-25 06:56] MED LIST changes: +LACTATED RINGERS 1,000 ML IV SCH; -METHOTREXATE SODIUM (PF) 25 MG/ML 2 ML VIAL IM ONE; +SODIUM CHLORIDE 0.9% 1,000 ML IV SCH
[2019-05-25 07:50] VITALS: PULSE 70
--- NOTE | 2019-05-25 10:55 | CE ---
CARDIAC ELECTROPHYSIOLOGY REPORT TILT TABLE TEST Sophie Chavira is a 34-year-old female who has a history of recurrent syncope with some nausea prior to that, but associated with palpitations. She presently underwent a tilt table test. A 12-lead ECG shows sinus rhythm, normal [place], narrow QRS, normal ST segments, no delta waves. No epsilon waves. Normal QT interval 420 milliseconds, absolute QT interval. Normal ST segments. Tilt table test per protocol. Baseline blood pressure 123/66 mmHg, heart rate 63 beats per minute. She was tilted upright at an angle of 70 degrees per protocol. She felt a little dizzy as soon as she became upright on the tilt. She feels a little off balance, but her heart rate and blood pressure remained in the normal range. Maximum heart rate was 98 beats per minute. Later, she started complaining of nausea and did not feel right, but her blood pressure and heart rate remained in the normal range. She also complained of chest discomfort with tingling down her arm. She also complained of dizziness; however, at no point during the tilt did she lose consciousness nor was there any significant change in heart rate or blood pressure. IMPRESSION: 1. Normal 12-lead ECG. 2. No evidence for neurocardiogenic syncope. 3. No evidence for dysautonomia. MMODL / IJN: [id number] /
[2019-05-25 11:20] VITALS: BP 113/57; RESP 18
== END 2019-05-25 11:15 | disposition home or self-care (01) ==
LOC: CATHEP 06:56
PROVIDERS: ATTEND Internal Medicine Clinical Cardiac Electrophysiology
DX: R55 Syncope and collapse (principal); R00.2 Palpitations; Z79.1 Long term (current) use of non-steroidal anti-inflammatories (NSAID); Z79.51 Long term (current) use of inhaled steroids; Z79.899 Other long term (current) drug therapy; Z88.5 Allergy status to narcotic agent
CPT/HCPCS: 81025; 93660

== ENCOUNTER → 2019-07-15 | Outpatient (CLI) | payer OTHER ==
[2019-07-15 08:58] LABS: HCT 37.6 % (34.0-46.0); HGB 12.5 gm/dL (11.4-16.0); Hypochromasia Slight; MCH 26.9 pg (25.0-35.0); MCHC 33.2 g/dL (31.0-37.0); MCV 81.1 fL (80.0-100.0); Mean Platelet Volume 6.7; Platelet Count 277 k/uL (150-450); RBC 4.64 m/uL (3.80-5.40); RDW 13.8 % (11.5-15.5)
[2019-07-15 09:04] LABS: African American GFR (CKD) >90 (>60 ml/min/1.73 sqM); Anion Gap 8 mmol/L; Blood Urea Nitrogen 16 mg/dL (7-17); Carbon Dioxide 26 mmol/L (22-30); Chloride 106 mmol/L (98-107); Glucose 99 mg/dL (74-99); Non-African American GFR(CKD) >90 (>60 ml/min/1.73 sqM); Potassium 4.3 mmol/L (3.5-5.1); Sodium 140 mmol/L (137-145)
== END ==
LOC: LABPAT 08:13
PROVIDERS: ATTEND Internal Medicine Clinical Cardiac Electrophysiology
DX: Z01.812 Encounter for preprocedural laboratory examination (principal); R00.2 Palpitations; R55 Syncope and collapse
CPT/HCPCS: 36415; 80051; 82565; 82947; 84520; 85027

== ENCOUNTER → 2019-07-24 | Day surgery (SDC) | payer OTHER ==
[2019-07-21 08:56] VITALS: BMI 33.3
[~2019-07-24] MED LIST changes: -LACTATED RINGERS 1,000 ML IV SCH; +LIDOCAINE 1% 20 ML VIAL (10MG/ML) FOR IV START INTRADERMA PRN
== END ==
LOC: CATHEP 12:52
PROVIDERS: ATTEND Internal Medicine Clinical Cardiac Electrophysiology
DX: R55 Syncope and collapse (principal); R00.2 Palpitations; Z91.040 Latex allergy status; Z53.8 Procedure and treatment not carried out for other reasons

== ENCOUNTER 2019-08-07 12:58 | Day surgery (SDC) | payer OTHER ==
[~2019-08-07 12:58] MED LIST changes: +LACTATED RINGERS 1,000 ML IV SCH; -LIDOCAINE 1% 20 ML VIAL (10MG/ML) FOR IV START INTRADERMA PRN; +MIDAZOLAM 2 MG/2 ML VIAL IV PRN; +fentaNYL (PF) 50 MCG/ML 2 ML AMP IV PRN
[2019-08-07] MEDS ORDERED: SODIUM CHLORIDE 0.9% 1,000 ML IV ONE (13:56)
[2019-08-07] MEDS ORDERED: PROPOFOL 10 MG/ML 20 ML VIAL IV ONE (16:30)
[2019-08-07] MEDS ORDERED: MIDAZOLAM 2 MG/2 ML VIAL ONE (16:30)
[2019-08-07] MEDS ORDERED: ISOPROTERENOL 250 MCG/1.25 ML SYR IV ONE (16:30)
[2019-08-07] MEDS ORDERED: LIDOCAINE 1% INJ 10MG/ML (20 ML MDV) ONE (16:41)
[2019-08-07] MEDS ORDERED: HEPARIN SODIUM 1,000 UN/ML (10ML VL) ONE (16:42)
--- NOTE | 2019-08-07 17:56 | P.HPCAR ---
History of Present Illness This is Dr. Escobedo dictating an admission h/p on this patient The patient was interviewed and examined by me IMPRESSION / ASSESSMENT: Recurrent episodes of syncope Most recent episode occurred 2 weeks back lying in bed. Normal heart rate and blood pressure response to upright tilting Normal 2-D echo, normal is stress echo PLAN: Proceed with diagnostic EP study and possible radio frequency ablation HPI Recurrent episodes of syncope associated with palpitations and nausea. She had the normal stress test, normal 2-D echo Tilt table test did not show any evidence for neurocardiogenic syncope with no abnormalities noted She continues to be dizzy and lightheaded. She had an episode of syncope lying in bed about 2 weeks back. She did complain of a feeling in the chest. Often she gets nausea before these episodes At this time she has no fever chills or rigors. No I'll May symptoms no upper respiratory infection no skin lesions noted. Rectal infection She is stable from a cardiac vascular standpoint to proceed with a diagnostic EP study She denies any chest discomfort no undue shortness of breath ROS: No fever chills or rigors, no cough, phlegm or expectoration, no nausea, vomiting or diarrhea, no hematuria, dysuria, no musculoskeletal complaints, no strokes or seizures, no skin lesions. EXAMINATION: Pulse rate 80, blood pressure 132/76 mmHg pulse ox 97%, normal respirations Afebrile 98.7 Breath sounds are clear no rhonchi no crackles Normal heart sounds normal S1 normal S2 No JVD no thyromegaly No lower extremity edema REVIEW OF LABS, ECG & MEDICAL DATA Normal stress test Normal 2-D echo Normal heart rate and blood pressure response to upright tilting Physical Exam Vitals: Vital Signs Temp Pulse Resp BP Pulse Ox 08/07/19 13:47 98.3 F 77 16 144/60 98 Intake and Output 08/07/19 08/07/19 08/07/19 06:59 14:59 22:59 Intake Total 50 450 Balance 50 450 Intake: IV 50 450 Other: Weight 90.5 kg Past Medical History Past Medical History: Asthma, Osteoarthritis (OA), Thyroid Disorder Additional Past Medical History / Comment(s): See Dr Escobedo's H&P History of Any Multi-Drug Resistant Organisms: None Reported Past Surgical History: Section Additional Past Surgical History / Comment(s): C section x 4, during 1 csection cervix was sewn shut so had a sx to reopen Past Anesthesia/Blood Transfusion Reactions: Family History of Problems w/ Anesthesia, Motion Sickness, Postoperative Nausea & Vomiting (PONV) Additional Past Anesthesia/Blood Transfusion Reaction / Comment(s): fam hx : PONV Smoking Status: Former smoker - Past Family History Mother Family Medical History: No Reported History Additional Family Medical History / Comment(s): Mom's mom: CA breast & colon Father Family Medical History: Rheumatoid Arthritis (RA) Physical Examination Vital Signs Temp Pulse Resp BP Pulse Ox 08/07/19 13:47 98.3 F 77 16 144/60 98 Intake and Output 08/07/19 08/07/19 08/07/19 06:59 14:59 22:59 Intake Total 50 450 Balance 50 450 Intake: IV 50 450 Other: Weight 90.5 kg Results Current Medications Generic Name Dose Route Start Last Admin Trade Name Freq PRN Reason Stop Dose Admin Fentanyl Citrate 50 mcg 08/07/19 06:35 Sublimaze IV 08/08/19 06:36 Q3M PRN Pain Control Sodium Chloride 1,000 mls @ 20 mls/hr 08/07/19 06:35 Saline 0.9% IV .Q24H UGO Lactated Ringer's 1,000 mls @ 20 mls/hr 08/07/19 06:35 Lactated Ringers IV .Q24H UGO Midazolam HCl 2 mg 08/07/19 06:35 Versed IV 08/08/19 06:36 ONCE PRN Anxiety Intake and Output 08/07/19 08/07/19 08/07/19 06:59 14:59 22:59 Intake Total 50 450 Balance 50 450 Intake: IV 50 450 Other: Weight 90.5 kg Patient Weight 08/08/19 06:59 Weight 90.5 kg
[2019-08-07] MEDS ORDERED: HYDROcodone/APAP 5-325MG 1 EACH TAB PO PRN (17:58)
[2019-08-07] MEDS ORDERED: ACETAMINOPHEN TAB 325 MG TAB PO PRN (17:58)
[2019-08-07 18:28] VITALS: BMI 33.2
[2019-08-07] MEDS ORDERED: ACETAMINOPHEN IV (For NPO) 1,000 MG in EMPTY BAG 1 BAG IVPB ONE (18:30)
[2019-08-07] MEDS ORDERED: FLUTICASONE 110 MCG INHALER INHALATION SCH (20:00)
[2019-08-07] MEDS: ESCITALOPRAM 10 MG TAB PO SCH (20:05)
[2019-08-07] MEDS: GABAPENTIN 300 MG CAP PO SCH (20:05)
--- NOTE | 2019-08-07 23:39 | PCN ---
PROCEDURE NOTE DATE OF SERVICE: 08/07/2019 This patient is a 34-year-old female who has had recurrent episodes of syncope and presyncope that were preceded by palpitations. Her tilt-table test did not reveal any neurocardiogenic syncope. She was brought in for a diagnostic EP study and possible radiofrequency ablation. Patient was brought to the EP lab in a fasting state. Written informed consent was obtained prior to the procedure. The right groin was prepped and draped as per protocol. Three venous sheaths were placed in the right femoral vein. Via these, diagnostic catheters were placed in the right heart (high right atrial catheter, His bundle catheter, RV catheter, and later the coronary sinus catheter). Full diagnostic EP study was performed on and off Isuprel. Sinus cycle length 888 milliseconds. WA interval 153 milliseconds. QRS 90 milliseconds. QT 420 milliseconds. AH interval 105 milliseconds. HV interval 35 milliseconds. Sinus node recovery times at 600, 500 and 400 milliseconds were 1201, 1241 and 890 milliseconds. AV Wenckebach block 380 milliseconds. VA Wenckebach block 490 milliseconds. Anitha response was noted with parahisian pacing in the baseline state. Atrial extrastimulation was performed in the high right atrium. AV node ERP 500/330 milliseconds. No evidence for slow pathway conduction echo beats or accessory pathway conduction. Ventricular extrastimulation was performed and initially there were intermittent retrograde jumps noted, but subsequently single retrograde echo beats were noted, atypical. Ventricular ERP 550/260 milliseconds. High-dose Isuprel was started and then reduced to 1 mcg and then subsequently to 0.5 mcg. VA Wenckebach block 340 milliseconds. Burst stimulation in the right ventricle was performed from 400 milliseconds down to 200 milliseconds. No arrhythmias were induced. Ventricular extrastimulation was performed up to double extrastimuli. No arrhythmia was induced. Atrial extrastimulation from the high right atrium was performed up to double extrastimuli. No arrhythmia was induced. Only single retrograde echo beats were noted. The catheter was placed in the coronary sinus. Straight pacing was performed. Burst stimulation was performed. Extrastimulation up to double extrastimuli from the coronary sinus was performed on Isuprel. No arrhythmia was induced. As the dose was tapered off, atrial and ventricular extrastimulation also did not induce any arrhythmias. All catheters were then removed. Venous sheaths were removed and hemostasis was assured. IMPRESSION: Diagnostic EP study revealin. Normal sinus node function. 2. Normal AV node function. 3. Single retrograde echo beats with a retrograde jump. 4. No inducible SVT. No inducible VT. PLAN: The patient had symptoms during the EP study, especially during Isuprel infusion, which resembled her symptoms at home. My plan is to start her on nadolol, initially at 10 mg and then subsequently 20 mg p.o. daily. The other option would be simply empiric use of Florinef for 3 months to see if there is any improvement in her symptoms of syncope. MMODL / IJN: [id number] /
--- NOTE | 2019-08-07 23:42 | LTR ---
August 07, 2019 To: Dr. Latia Heller Re: Sophie Chavira (87) Dear Latia, I had the pleasure of seeing Sophie Chavira in electrophysiology followup. Sophie had already undergone a diagnostic EP study for recurrent dizzy spells and syncope, but her heart rate and blood pressure were normal during tilt-table testing. Today she underwent a diagnostic EP study which did not reveal any inducible arrhythmias. However, when I treated her with Isuprel she started experiencing very similar symptoms, at least in its prodrome. Therefore, even though the EP study was completely normal, I would like to treat her with nadolol between 10 and 20 mg to see if this will provide any benefit in her symptoms. If this does not improve her symptoms, I will try empiric Florinef for at least 3 months. My working diagnosis is still neurocardiogenic phenomena for this lady. Thank you for entrusting me with the care of your patient. Warm regards. Sincerely, Jose Escobedo M.D. BANDAR / DANG: [id number] /
[2019-08-08 07:37] VITALS: BP 122/76; PULSE 71; RESP 16; TEMP 98.1
--- NOTE | 2019-08-08 08:08 | P.DS ---
Providers Attending physician: Jose Escobedo Primary care physician: Latia [place] [facility] Course: Patient is doing well. She is requesting a chair comfortable no chest discomfort no dizziness lightheadedness palpitations Minimal discomfort in the groins no pain in the groins Ambulating in the room On examination Afebrile 98.1F pulse rate in the 70s, blood pressure 122/76. His mercury 97% on room air Breath sounds are clear no rhonchi no crackles Heart sounds. Normal no murmurs or gallops or rub Breath sounds are clear Abdomen soft Groins of healed well no hematoma no swelling , minimal tenderness Impression Palpitations, likely sinus tachycardia Possible mild vasovagal episodes Twelve-lead ECG today shows sinus rhythm normal cardiac intervals Suggest Nadolol 10 mg by mouth daily Follow-up Dr. Escobedo/Antonia Head/Alana Gil within one week May go home today Plan - Discharge Summary Discharge Rx Participant: No New Discharge Prescriptions: New Nadolol [Corgard] 10 mg PO DAILY #50 tablet Continue Albuterol Inhaler [Ventolin Hfa Inhaler] 1 - 2 puff INHALATION BID PRN PRN Reason: Shortness Of Breath Beclomethasone Dip 80 Mcg/Puff [Qvar 80 mcg] 1 puff INHALATION HS Gabapentin [Neurontin] 300 mg PO BID Escitalopram [Lexapro] 10 mg PO BID Cholecalciferol (Vitamin D3) [Vitamin D3] 10,000 unit PO DAILY Ibuprofen [Motrin] 800 mg PO BID Discharge Medication List Albuterol Inhaler [Ventolin Hfa Inhaler] 1 - 2 puff INHALATION BID PRN 04/20/15 [History] Beclomethasone Dip 80 Mcg/Puff [Qvar 80 mcg] 1 puff INHALATION HS 05/19/19 [History] Cholecalciferol (Vitamin D3) [Vitamin D3] 10,000 unit PO DAILY 07/21/19 [History] Escitalopram [Lexapro] 10 mg PO BID 07/21/19 [History] Gabapentin [Neurontin] 300 mg PO BID 07/21/19 [History] Ibuprofen [Motrin] 800 mg PO BID 07/21/19 [History] Nadolol [Corgard] 10 mg PO DAILY #50 tablet 08/07/19 [Rx] Follow up Appointment(s)/Referral(s): Jose Escobedo MD [STAFF PHYSICIAN] - 1 Week (Follow-up with Dr. Escobedo/Antonia Head/Alana Gil next week Patient will take nadolol 10 mg by mouth daily) Activity/Diet/Wound Care/Special Instructions: Post EP study - Ablation instructions 1. Keep access sites dry for 2 days. 2. No heavy lifting or straining for 2 days. 3. Avoid bending the hips repeatedly for 2 days. 4. You may go up and down stairs slowly Call if the following is noted 1. Bleeding, increasing swelling or pain at the access sites. 2. Increasing chest discomfort, especially upon taking a deep breath. 3. Increasing shortness of breath, at rest or with exertion. 4. Undue cough / phlegm 5. Difficulty or pain while swallowing. 6. Pain or change in color in the extremities. 7. Fever, chills, rigors. 8. Increasing headache or neurologic symptoms. 9. Dizziness, fainting, palpitations New medication nadolol 10 mg by mouth daily Discharge Disposition: HOME SELF-CARE
[2019-08-08] MEDS: ESCITALOPRAM 10 MG TAB PO SCH (08:22)
[2019-08-08] MEDS: GABAPENTIN 300 MG CAP PO SCH (08:22)
== END 2019-08-08 11:15 | disposition home or self-care (01) ==
LOC: CATHEP 12:58 → 1SOBS 18:13 → CATHEP 08-08 11:15
PROVIDERS: ATTEND Internal Medicine Clinical Cardiac Electrophysiology
DX: R55 Syncope and collapse (principal); R00.2 Palpitations; R11.0 Nausea; J45.909 Unspecified asthma, uncomplicated; M19.90 Unspecified osteoarthritis, unspecified site; E07.9 Disorder of thyroid, unspecified; Z87.891 Personal history of nicotine dependence; Z80.3 Family history of malignant neoplasm of breast; Z80.0 Family history of malignant neoplasm of digestive organs; Z82.61 Family history of arthritis; Z79.51 Long term (current) use of inhaled steroids; Z79.899 Other long term (current) drug therapy; Z88.6 Allergy status to analgesic agent; Z88.5 Allergy status to narcotic agent
CPT/HCPCS: 94640; 93623; 93620; 81025; C1894; C1769 ×2; C1730 ×2

== ENCOUNTER → 2021-01-02 | Outpatient (CLI) | payer OTHER ==
[2021-01-02 11:08] LABS: HCT 39.2 % (37.2-46.3); HGB 12.8 g/dL (12.0-15.0); MCH 28.3 pg (27.0-32.0); MCHC 32.7 g/dL (32.0-37.0); MCV 86.7 fL (80.0-97.0); Mean Platelet Volume 10.3 fL (9.5-12.2); Platelet Count 269 X 10*3/uL (140-440); RBC 4.52 X 10*6/uL (4.10-5.20); RDW 13.4 % (11.5-14.5); WBC 7.34 X 10*3/uL (4.50-10.00)
[2021-01-02 11:57] LABS: African American GFR (CKD) 111.5 (60.0-200.0); Albumin 4.4 g/dL (3.80-4.90); Albumin/Globulin Ratio 1.63 (1.60-3.17); Anion Gap 6.9 mmol/L (4.00-12.00); BUN/Creat Ratio 11.25 Ratio (12.00-20.00); Calcium 9.6 mg/dL (8.7-10.3); Carbon Dioxide 27.1 mmol/L (21.6-31.8); Chol/HDL Ratio 4.79; Globulin 2.7 g/dL (1.6-3.3); LDL Cholesterol,Calculated 138.6 mg/dL (0.0-131.0); Non-African American GFR(CKD) 96.2 (60.0-200.0); Potassium 3.8 mmol/L (3.5-5.5); Total Bilirubin 0.4 mg/dL (0.2-1.2); Total Protein 7.1 g/dL (6.2-8.2); VLDL Calculation 58.4 mg/dL (5.00-40.00)
== END | disposition home or self-care (01) ==
LOC: LABWHC1 07:26
PROVIDERS: ATTEND Internal Medicine
DX: Z00.00 Encounter for general adult medical examination without abnormal findings (principal); E78.00 Pure hypercholesterolemia, unspecified; R53.82 Chronic fatigue, unspecified
CPT/HCPCS: 36415; 80053; 80061; 85027; 86769

== ENCOUNTER 2023-09-10 17:15 | Emergency (ER) | payer OTHER ==
[2023-09-10 17:29] VITALS: BP 145/80; PULSE 132; RESP 20; TEMP 101
--- NOTE | 2023-09-10 17:34 | ED ---
General Adult HPI - General Source: patient, RN notes reviewed Mode of arrival: ambulatory Limitations: no limitations <Susan Carpenter - Last Filed: 09/10/23 17:33> <Fransisco Rachel - Last Filed: 09/10/23 20:14> - General Chief complaint: Upper Respiratory Infection Stated complaint: COVID Symptoms, 18wks Time Seen by Provider: 09/10/23 17:33 - History of Present Illness Initial comments: 38-year-old female presents emergency Department with chief complaint of fever, chills, congestion. She also admits to some nausea and diarrhea. Patient states that she is 18 weeks . (Susan Carpenter) A0 18-week-old female presents to the ED with a chief complaint of URI symptoms. Patient states for the past day has had myalgias, subjective fever, chills, nausea, vomiting, diarrhea. States that she was advised by her OB to present to the ED to receive IV fluids. No chest pain or shortness of breath. No abdominal pain or vaginal bleeding. No other complaints. (Fransisco Rachel) - Related Data Home Medications Medication Instructions Recorded Confirmed Albuterol Inhaler [Ventolin Hfa 1 - 2 puff INHALATION BID PRN 04/20/15 08/04/19 Inhaler] Beclomethasone Dip 80 Mcg/Puff 1 puff INHALATION HS 05/19/19 08/07/19 [Qvar 80 mcg] Cholecalciferol (Vitamin D3) 10,000 unit PO DAILY 07/21/19 08/07/19 [Vitamin D3] Escitalopram [Lexapro] 10 mg PO BID 07/21/19 08/07/19 Gabapentin [Neurontin] 300 mg PO BID 07/21/19 08/07/19 Ibuprofen [Motrin] 800 mg PO BID 07/21/19 08/07/19 Previous Rx's Medication Instructions Recorded nadoloL [Corgard] 10 mg PO DAILY #50 tablet 08/07/19 Allergies Allergy/AdvReac Type Severity Reaction Status Date / Time codeine Allergy Nausea Verified 08/07/19 13:15 hydrocodone bitartrate Allergy Nausea & Verified 08/07/19 13:15 [From Vicodin] Vomiting & Diarrhea latex Allergy Rash/Hives Verified 08/07/19 13:15 Milk Containing Products Allergy Vomiting Verified 08/07/19 13:15 (Dairy) [Milk Containing Products] Review of Systems ROS Other: All systems not noted in ROS Statement are negative. <Susan Carpenter - Last Filed: 09/10/23 17:33> ROS Other: All systems not noted in ROS Statement are negative. <Fransisco Rachel - Last Filed: 09/10/23 20:14> ROS Statement: Those systems with pertinent positive or pertinent negative responses have been documented in the HPI. Past Medical History Past Medical History: Asthma, Osteoarthritis (OA), Thyroid Disorder Additional Past Medical History / Comment(s): See Dr Escobedo's H&P History of Any Multi-Drug Resistant Organisms: None Reported Past Surgical History: Section Additional Past Surgical History / Comment(s): C section x 4, during 1 csection cervix was sewn shut so had a sx to reopen Past Anesthesia/Blood Transfusion Reactions: Family History of Problems w/ Anesthesia, Motion Sickness, Postoperative Nausea & Vomiting (PONV) Additional Past Anesthesia/Blood Transfusion Reaction / Comment(s): fam hx : PONV Past Psychological History: Anxiety Past Alcohol Use History: None Reported Past Drug Use History: None Reported - Past Family History Mother Family Medical History: No Reported History Additional Family Medical History / Comment(s): Mom's mom: CA breast & colon Father Family Medical History: Rheumatoid Arthritis (RA) <Susan Carpenter - Last Filed: 09/10/23 17:33> General Exam Limitations: no limitations <Susan Carpenter - Last Filed: 09/10/23 17:33> General appearance: alert Eye exam: Present: normal appearance Neck exam: Present: normal inspection Respiratory exam: Present: normal lung sounds bilaterally Cardiovascular Exam: Present: regular rate, normal rhythm GI/Abdominal exam: Present: soft Neurological exam: Present: alert, oriented X3 Skin exam: Present: warm, dry <Fransisco Rachel - Last Filed: 09/10/23 20:14> - General Exam Comments Initial Comments: Visual Physical Exam Vital signs reviewed General: Well-appearing, nontoxic, no acute distress. Head: Normocephalic, atraumatic Eyes: PERRLA, EOMI ENT: Airway patent Chest: Nonlabored breathing Skin: No visual rash, normal skin tone Neuro: Alert and oriented 3 Musculoskeletal: No gross abnormalities (Susan Carpenter) Course Vital Signs 09/10/23 17:26 Temperature 101 F H Pulse Rate 132 H Respiratory 20 Rate Blood Pressure 145/80 O2 Sat by Pulse 99 Oximetry Medical Decision Making <Susan Carpenter - Last Filed: 09/10/23 17:33> <Fransisco Rachel - Last Filed: 09/10/23 20:14> - Medical Decision Making Quick note preformed by Susan Carpenter PA-C (Susan Carpenter) Was pt. sent in by a medical professional or institution (JOHN Anthony, OUTBOUND SUPERVISOR, urgent care, hospital, or detention...) When possible be specific @ -No Did you speak to anyone other than the patient for history (EMS, parent, family, police, friend...)? What history was obtained from this source @ -No Did you review nursing and triage notes (agree or disagree)? Why? @ -I reviewed and agree with nursing and triage notes Were old charts reviewed (outside hosp., previous admission, EMS record, old EKG, old radiological studies, urgent care reports/EKG's, detention records)? Report findings @ -No old charts were reviewed Differential Diagnosis (chest pain, altered mental status, abdominal pain women, abdominal pain men, vaginal bleeding, weakness, fever, dyspnea, syncope, headache, dizziness, GI bleed, back pain, seizure, CVA, palpatations, mental health, musculoskeletal)? @ -Differential Fever: Pneumonia, viral URI, endocarditis, myocarditis, pericarditis, otitis, sinusitis, peritonsillar Abscess, retropharyngeal Abscess, epiglottitis, per itonitis, appendicitis, Mallika cystitis, diverticulitis, hepatitis, colitis, UTI, PID, TOA, pyelonephritis, prostatitis, epididymitis, meningitis, encephalitis, pulmonary embolism, CVA, thyroid storm, pancreatitis, adrenal crisis, cavernous sinus thrombosis, this is not meant to be an all-inclusive list. EKG interpreted by me (3pts min.). @ -None X-rays interpreted by me (1pt min.). @ -None done CT interpreted by me (1pt min.). @ -None done U/S interpreted by me (1pt. min.). @ -None done What testing was considered but not performed or refused? (CT, X-rays, U/S, labs)? Why? @ -None What meds were considered but not given or refused? Why? @ -None Did you discuss the management of the patient with other professionals (professionals i.e. , PA, OUTBOUND SUPERVISOR, lab, RT, psych nurse, nursing home social worker, tobacco farmworker, teacher, program officer, porter sample case)? Give summary @ -No Was smoking cessation discussed for >3mins.? @ -No Was critical care preformed (if so, how long)? @ -No Were there social determinants of health that impacted care today? How? (Homelessness, low income, unemployed, alcoholism, drug addiction, transportation, low edu. Level, literacy, decrease access to med. care, usp, rehab)? @ -No Was there de-escalation of care discussed even if they declined (Discuss DNR or withdrawal of care, Hospice)? DNR status @ -No What co-morbidities impacted this encounter? (DM, HTN, Smoking, COPD, CAD, Cancer, CVA, ARF, Chemo, Hep., AIDS, mental health diagnosis, sleep apnea, morbid obesity)? @ - Was patient admitted / discharged? Hospital course, mention meds given and route, prescriptions, significant lab abnormalities, going to OR and other pertinent info. @ -Discharge A 38-year-old female presenting with URI symptoms. Exam showed no evidence of respiratory distress. Patient had an unremarkable physical exam. Cephid positive for COVID. After discussion of antiemetic use and its potential risks to baby patient deferred Zofran. Patient provided IV fluids and Tylenol. Discharged home in stable condition. Discussed return precautions with patient who verbalizes agreement. Undiagnosed new problem with uncertain prognosis? @ -No Drug Therapy requiring intensive monitoring for toxicity (Heparin, Nitro, Insul in, Cardizem)? @ -No Were any procedures done? @ -No Diagnosis/symptom? @ -COVID Acute, or Chronic, or Acute on Chronic? @ -Acute Uncomplicated (without systemic symptoms) or Complicated (systemic symptoms)? @ -Uncomplicated Side effects of treatment? @ -No Exacerbation, Progression, or Severe Exacerbation? @ -No Poses a threat to life or bodily function? How? (Chest pain, USA, MS, pneumonia, PE, COPD, DKA, ARF, appy, cholecystitis, CVA, Diverticulitis, Homicidal, Suicidal, threat to staff... and all critical care pts) @ -No (Fransisco Rachel) - Lab Data Lab Results 09/10/23 Range/Units 18:30 Influenza Type A (PCR) Not Detected (Not Detectd) Influenza Type B (PCR) Not Detected (Not Detectd) RSV (PCR) Not Detected (Not Detectd) SARS-CoV-2 (PCR) Detected A (Not Detectd) Disposition <Susan Carpenter - Last Filed: 09/10/23 17:33> Is patient prescribed a controlled substance at d/c from ED?: No Time of Disposition: 20:14 <Fransisco Rachel - Last Filed: 09/10/23 20:14> Clinical Impression: COVID Disposition: HOME SELF-CARE Condition: Good Instructions (If sedation given, give patient instructions): Upper Respiratory Infection (ED) Additional Instructions: Please return to the Emergency Department if symptoms worsen or any other concerns. Please follow-up with your RIVER RAFTING GUIDE. Referrals: Latia Heller MD [Primary Care Provider] - 1-2 days
[2023-09-10] MEDS ORDERED: ACETAMINOPHEN TAB 500 MG TAB PO STA (20:10)
[2023-09-10] MEDS ORDERED: SODIUM CHLORIDE 0.9% 2,000 ML IV STA (20:10)
== END 2023-09-10 21:00 | disposition home or self-care (01) ==
LOC: EC 17:15
DX: O26.892 Other specified pregnancy related conditions, second trimester (principal); O99.512 Diseases of the respiratory system complicating pregnancy, second trimester; U07.1 COVID-19; J45.909 Unspecified asthma, uncomplicated; Z86.59 Personal history of other mental and behavioral disorders; Z91.011 Allergy to milk products; Z91.040 Latex allergy status; Z88.8 Allergy status to other drugs, medicaments and biological substances; Z3A.18 18 weeks gestation of pregnancy
CPT/HCPCS: 87636; 96360; 99283

== ENCOUNTER 2023-12-15 17:16 | Outpatient (CLI) | payer OTHER ==
[2023-12-15] MEDS: BETAMET ACET-BETAMETH SOD PHOS 6 MG/ML MDV IM SCH (17:36)
== END 2023-12-15 17:39 | disposition home or self-care (01) ==
LOC: FBPOP 17:16
PROVIDERS: ATTEND Obstetrics & Gynecology Obstetrics
DX: O60.00 Preterm labor without delivery, unspecified trimester (principal); Z88.5 Allergy status to narcotic agent; Z91.040 Latex allergy status; Z3A.00 Weeks of gestation of pregnancy not specified
CPT/HCPCS: 96372; J0702

== ENCOUNTER 2023-12-16 17:00 | Outpatient (CLI) | payer OTHER ==
[2023-12-16] MEDS: BETAMET ACET-BETAMETH SOD PHOS 6 MG/ML MDV IM SCH (17:10)
== END 2023-12-16 17:12 | disposition home or self-care (01) ==
LOC: FBPOP 17:00
PROVIDERS: ATTEND Obstetrics & Gynecology Obstetrics
DX: O60.00 Preterm labor without delivery, unspecified trimester (principal); Z3A.00 Weeks of gestation of pregnancy not specified; Z88.5 Allergy status to narcotic agent; Z91.040 Latex allergy status
CPT/HCPCS: 96372; J0702

== ENCOUNTER 2024-01-14 07:53 | Inpatient (IN) | payer OTHER ==
[2024-01-14] MEDS ORDERED: METHYLERGONOVINE 0.2 MG/ML 1 ML AMP IM PRN (08:03)
[2024-01-14] MEDS ORDERED: CARBOPROST TROMETHAMINE 250 MCG/ML 1 ML AMP IM PRN (08:03)
[2024-01-14] MEDS ORDERED: miSOPROStoL 200 MCG TAB PO PRN (08:03)
[2024-01-14] MEDS ORDERED: OXYTOCIN 10 UNIT/ML 1 ML VIAL IM PRN (08:03)
[2024-01-14] MEDS ORDERED: TRANEXAMIC 1,000 MG/100ML-NACL 1,000 MG in EMPTY BAG 1 BAG IV PRN (08:03)
[2024-01-14 08:43] LABS: Anisocytosis Slight; Basophils % (A) 0 %; Eosinophils % (A) 1 %; HCT 34.1 % (34.0-46.0); Lymphocytes # (A) 1.8 k/uL (1.0-4.8); Lymphocytes % (A) 21 %; MCH 27.2 pg (25.0-35.0); MCHC 32.4 g/dL (31.0-37.0); MCV 84.2 fL (80.0-100.0); Mean Platelet Volume 8.6; Monocytes # (A) 0.4 k/uL (0-1.0); Monocytes % (A) 4 %; Neutrophils # (A) 6.4 k/uL (1.3-7.7); Neutrophils % (A) 72 %; Platelet Count 163 k/uL (150-450); Poikilocytosis Slight; RBC 4.05 m/uL (3.80-5.40); RDW 16.1 % (11.5-15.5); WBC 8.9 k/uL (3.8-10.6)
[2024-01-14] MEDS: CITRIC ACID-SODIUM CITRATE 15 ML CUP PO ONE (08:59)
[2024-01-14] MEDS ORDERED: OXYTOCIN 30 UNITS/500 ML NS BAG IV ONE (09:54)
[2024-01-14] MEDS ORDERED: fentaNYL (PF) 50 MCG/ML 2 ML AMP ONE (09:54)
[2024-01-14] MEDS ORDERED: ONDANSETRON 4 MG/2 ML VIAL ONE (09:54)
[2024-01-14] MEDS ORDERED: HYDROmorphone (PF) 1 MG/ML ONE (09:54)
[2024-01-14] MEDS ORDERED: DEXAMETHASONE SOD PHOSPHATE 4 MG/ML 1 ML VIAL ONE (09:54)
[2024-01-14] MEDS ORDERED: MIDAZOLAM 2 MG/2 ML VIAL ONE (09:54)
[2024-01-14] MEDS ORDERED: MORPHINE SULFATE (PF) 0.3 MG/0.3 ML SYR ONE (09:54)
--- NOTE | 2024-01-14 11:29 | P.HPOB ---
History of Present Illness H&P Date: 01/14/24 Chief Complaint: IUP at 36-2/7 weeks, history of x 4, incisional pain This is a 38-year-old 6 para 3-1-1-4 that presents to labor and delivery for scheduled repeat section with tubal. Patient was seen in the office yesterday with noted increasing pain and contractions. Patient noted the pain to be around her incision. Patient denied vaginal bleeding. With patient's last the uterus was "teed up for delivery of the secondary to extensive scarring. Patient was noting pain around the area of that uterine incision. Patient did note good movement. Patient states contractions have been frequent at night but typically resolve on their own after rest Patient has been receiving routine care with myself which has been essentially uncomplicated. Patient denies loss of fluid prior to this admission blood work shows a blood type of a negative, rubella status immune, hepatitis B surface antigen negative, HIV negative, RPR is nonreactive. Grew beta strep culture was unknown as the swab was just recently obtained. Review of Systems Constitutional: Reports fatigue, Denies chills, Denies fever Ears, nose, mouth and throat: Denies headache Respiratory: Denies dyspnea Gastrointestinal: Denies nausea, Denies vomiting Genitourinary: Reports Past Medical History Past Medical History: Asthma, Rheumatoid Arthritis (RA) Additional Past Medical History / Comment(s): See Dr Escobedo's H&P History of Any Multi-Drug Resistant Organisms: None Reported Past Surgical History: Section Additional Past Surgical History / Comment(s): C section x 4, during 1 csection cervix was sewn shut so had a sx to reopen Past Anesthesia/Blood Transfusion Reactions: Family History of Problems w/ Ane sthesia, Motion Sickness, Postoperative Nausea & Vomiting (PONV) Additional Past Anesthesia/Blood Transfusion Reaction / Comment(s): fam hx : PONV Past Psychological History: Anxiety Smoking Status: Never smoker Past Alcohol Use History: None Reported Additional Past Alcohol Use History / Comment(s): smoking: started [id number] Past Drug Use History: None Reported - Past Family History Mother Family Medical History: No Reported History Additional Family Medical History / Comment(s): Mom's mom: CA breast & colon Father History Unknown: Yes Family Medical History: Rheumatoid Arthritis (RA) Additional Family Medical History / Comment(s): MOM ALS Medications and Allergies Home Medications Medication Instructions Recorded Confirmed Type Albuterol Inhaler [Ventolin Hfa 1 - 2 puff INHALATION BID PRN 04/20/15 01/14/24 History Inhaler] Pediatric Multivitamin No.144 1 tab PO DAILY 12/15/23 01/14/24 History [Children's Chewable Vitamin] Ferrous Sulfate [Iron] 325 mg PO DAILY 01/14/24 01/14/24 History Allergies Allergy/AdvReac Type Severity Reaction Status Date / Time codeine Allergy Nausea Verified 01/14/24 07:59 hydrocodone bitartrate Allergy Nausea & Verified 01/14/24 07:59 [From Vicodin] Vomiting & Diarrhea latex Allergy Rash/Hives Verified 01/14/24 07:59 Penicillins Allergy Rash/Hives Verified 01/14/24 07:59 Exam Osteopathic Statement: *. No significant issues noted on an osteopathic structural exam other than those noted in the History and Physical/Consult. Vital Signs Temp Pulse Resp BP Pulse Ox 01/14/24 07:58 98.1 F 81 16 138/74 99 Intake and Output 01/13/24 01/14/24 01/14/24 22:59 06:59 14:59 Other: Weight 97.976 kg Targeted physical exam is performed this date General is a well-nourished well- developed female in no acute distress, breathing is noted to be nonlabored, heart has a regular rate and rhythm, abdomen is gravid and appropriate for gestational age, cervical exam is deferred, heart tones are noted to be category 1 Results Result Diagrams: 01/14/24 08:03 Abnormal Lab Results - Last 24 Hours (Table) 01/14/24 Range/Units 08:03 Hgb 11.0 L (11.4-16.0) gm/dL RDW 16.1 H (11.5-15.5) % Assessment and Plan (1) 36 to 37 weeks gestation of Current Visit: Yes Status: Acute Code(s): XTR2397 - SNOMED Code(s): 836452516 (2) History of Narrative/Plan: Prior history of 4 C-sections, last significant for extensive scarring, increasing incisional tenderness Current Visit: Yes Status: Acute Code(s): Z98.891 - HISTORY OF UTERINE SCAR FROM PREVIOUS SURGERY SNOMED Code(s): 340782979 Plan: 38-year-old 6 para 3-1-1-4 at 36-2/7 weeks presents for repeat with tubal ligation. Patient has excess drain anxiety regarding this section as this was unplanned and her last was complicated with extensive scarring. Long discussion with patient regarding and possibility of injury to bladder bowel or injury upon entering the uterus. Multiple questions were answered. Anesthesia was notified about concerns regarding her last and possibility of increased scarring at the . Will proceed to operating suite
[2024-01-14] MEDS ORDERED: diphenhydrAMINE 50 MG CAP PO PRN (11:37)
[2024-01-14] MEDS ORDERED: SIMETHICONE 80 MG CHEWABLE PO PRN (11:37)
[2024-01-14] MEDS ORDERED: NALOXONE 0.4 MG/ML 1 ML VIAL IV PRN (11:37)
[2024-01-14] MEDS ORDERED: diphenhydrAMINE 50 MG/ML 1 ML VIAL IVP PRN (11:37)
[2024-01-14] MEDS ORDERED: ZOLPIDEM 5 MG TAB PO PRN (11:37)
[2024-01-14] MEDS ORDERED: diphenhydrAMINE 25 MG CAP PO PRN (11:37)
--- NOTE | 2024-01-14 11:37 | P.OP ---
Date of Procedure: 01/14/24 Preoperative Diagnosis: IUP at 36-2/7 weeks, history of x 4, extensive scarring noted on last , family status complete, AMA Postoperative Diagnosis: Same Procedure(s) Performed: Repeat section with tubal ligation Anesthesia: spinal Surgeon: Jennifer Cornejo Deputy Administrator #1: Norman Smith Estimated Blood Loss (ml): 700 IV fluids (ml): 1,400 Urine output (ml): 200 (Clear noted throughout the procedure) Pathology: other (Placenta) Condition: stable Disposition: observation Indications for Procedure: History of x 4 with extensive scarring, family status complete, increa sing incisional tenderness Operative Findings: Extensive omental adhesions anteriorly, uterus was able to be delivered from the abdomen significant lower uterine segment scarring bladder was noted to be free of the operating field viable male infant delivered at 1029, weight of 6 pounds 1 ounce, Apgars of 9 and 9 at 1 and 5 minutes respectively. Description of Procedure: Patient was taken back to the operating suite where spinal anesthesia was found to be adequate. She is prepped and draped in the normal sterile fashion in the dorsal supine position. A Pfannenstiel skin incision was made with a scalpel and carried through to the underlying layer of fascia. The fascia incised in the midline and extended laterally. The superior aspect of the fascial incision was then grasped with Yusuf clamps, elevated and the underlying rectus muscle was dissected off sharply and with the Bovie. Omental adhesions were noted to be anteriorly adherent to the fascial incision. Attention was then turned to the patient's inferior aspect of the fascial incision which was grasped with Yusuf clamps, elevated and the underlying rectus muscles dissected off sharply. The rectus muscles were and the omentum was dissected off sharply from the anterior uterus. The bladder blade was inserted into the pelvis the bladder was noted far from the operating field hysterotomy incision was performed with a scalpel, the uterine incision was then extended bluntly. Clear fluid was noted. The infant was encountered in a transverse presentation, backup converted to breech presentation and delivered in the usual fashion. Spontaneous cry was appreciated at . The umbilical cord was doubly clamped and cut, infant was handed off to waiting RN. Placenta was delivered manually intact with a three-vessel cord being noted. Uterus was able to be delivered from the abdomen, uterine incision was was closed with 0 Vicryl in a running locked fashion, an additional imbricating suture was performed. Bleeding was noted over the entire hysterotomy incision therefore a another running locked suture was performed from 1 lateral edge of the uterine incision to the other. Small amount of oozing was noted on the right-hand side therefore 2 [id number] sutures were used to obtain hemostasis. The Filshie clip applicator was then opened and the right fallopian tube was elevated and grasped complete cross-section was appreciated this was then repeated on the opposite side. The uterus was then returned to the abdomen. Small amount of oozing was noted over the hysterotomy incision and Surgicel powder was placed along slight amount of pressure was used and hemostasis was appreciated. Interceed was placed over the Surgicel powder. The gutters have been cleared of all clots debris prior to this. Rectus muscles were loosely reapproximated. Any points of bleeding in the rectus muscles were made hemostatic with the Bovie. The fas alicia was closed with 0 Vicryl in a running fashion from 1 lateral edge to the midline the other lateral edge of the midline. Subcutaneous tissue was irrigated found to be hemostatic and closed with 3-0 Vicryl in a running fashion. The skin was closed with 4-0 Vicryl in a subcuticular fashion. All counts were noted be correct x 2 at the end of the procedure. Patient and infant tolerated delivery well and are resting comfortably.
[2024-01-14] MEDS: ACETAMINOPHEN IV (For NPO) 1,000 MG in EMPTY BAG 1 BAG IVPB ONE (11:48)
[2024-01-14] MEDS: METOCLOPRAMIDE 5 MG/ML 2 ML VIAL IVP PRN (12:17)
[2024-01-14] MEDS: HYDROmorphone 1 MG/ML 1 ML SYRINGE IM PRN (12:25)
[2024-01-14] MEDS: ONDANSETRON 4 MG/2 ML VIAL IVP PRN (14:24)
[2024-01-14] MEDS: diphenhydrAMINE 50 MG/ML 1 ML VIAL IVP PRN (14:42)
[2024-01-14] MEDS: IBUPROFEN IV 800 MG in SODIUM CHLORIDE 0.9% 250 ML IV SCH (17:10)
[2024-01-14] MEDS ORDERED: ACETAMINOPHEN IV (For NPO) 1,000 MG in EMPTY BAG 1 BAG IVPB SCH (18:00)
[2024-01-14] MEDS: ACETAMINOPHEN TAB 500 MG TAB PO SCH (19:08)
[2024-01-14] MEDS: SENNOSIDES-DOCUSATE SODIUM 1 EACH TAB PO SCH (20:18)
[2024-01-14] MEDS: LACTATED RINGERS 1,000 ML IV SCH (21:20)
[2024-01-14] MEDS ORDERED: ONDANSETRON 4 MG/2 ML VIAL IVP PRN (21:51)
[2024-01-14] MEDS: IBUPROFEN 600 MG TAB PO SCH (22:18)
[2024-01-14] MEDS: Rhogam IMMUNE GLOBULIN 1,500 UNIT/1 ML IM ONE (23:05)
[2024-01-15] MEDS: MULTIVITAMINS, PEDIATRIC 1 EACH CHEWABLE PO SCH (09:20)
--- NOTE | 2024-01-15 09:22 | P.PNOBGPC ---
Subjective - Subjective Principal diagnosis: Postop day 1, repeat with tubal ligation Interval history: Patient is doing well postoperatively. She is ambulating and voiding without difficulty. Gerber catheter was removed last evening. She states her pain is improved from yesterday. Lochia is minimal. She is pumping. Baby remains in the nursery on high flow oxygen Patient reports: Reports appetite normal, Reports voiding normally, Reports pain well controlled, Reports ambulating normally : doing well (In special care nursery) Objective - Vital Signs Latest vital signs: Vital Signs Temp Pulse Resp BP Pulse Ox 01/15/24 08:21 98.8 F 88 16 113/75 97 01/15/24 04:00 97.4 F L 86 16 119/74 98 01/15/24 00:00 98.4 F 85 16 106/64 99 01/14/24 20:00 98.4 F 80 16 113/66 97 01/14/24 15:30 97.7 F 69 16 130/73 01/14/24 13:30 60 16 125/60 98 01/14/24 13:15 78 16 132/69 100 01/14/24 13:00 56 L 16 118/57 99 01/14/24 12:45 60 16 127/61 100 01/14/24 12:30 76 16 116/54 100 01/14/24 12:15 73 16 134/66 100 01/14/24 12:00 74 16 140/84 100 01/14/24 11:45 64 16 135/80 99 01/14/24 11:30 98.1 F 68 16 110/60 99 Intake and Output 01/14/24 01/15/24 01/15/24 22:59 06:59 14:59 Output Total 1100 500 Balance -1100 -500 Output: Urine 1100 500 Uretheral (Gerber) 400 Other: # Voids 1 1 1 - Exam Extremities: Present: normal, edema Abdomen: Present: normal appearance, soft Incision: Present: normal, dry, intact Uterus: Present: normal, firm Assessment and Plan (1) 36 to 37 weeks gestation of Current Visit: Yes Status: Acute Code(s): GXA8700 - SNOMED Code(s): 607989928 (2) History of Current Visit: Yes Status: Acute Code(s): Z98.891 - HISTORY OF UTERINE SCAR FROM PREVIOUS SURGERY SNOMED Code(s): 679503551 (3) Status post section Current Visit: Yes Status: Acute Code(s): Z98.891 - HISTORY OF UTERINE SCAR FROM PREVIOUS SURGERY SNOMED Code(s): 775973511 (4) Family planning Current Visit: Yes Status: Acute Code(s): Z30.09 - ENCOUNTER FOR OTH GENERAL CNSL AND ADVICE ON CONTRACEPTION SNOMED Code(s): 145379458 Plan: Patient is doing well postoperatively. Plan to continue routine postoperative care.
[2024-01-15 09:57] LABS: Anisocytosis Slight; Basophils % (A) 0 %; Eosinophils % (A) 0 %; HCT 28.3 % (34.0-46.0); Hypochromasia Slight; Lymphocytes # (A) 1.5 k/uL (1.0-4.8); Lymphocytes % (A) 13 %; MCH 26.9 pg (25.0-35.0); MCHC 31.3 g/dL (31.0-37.0); MCV 85.7 fL (80.0-100.0); Mean Platelet Volume 9.1; Monocytes # (A) 0.5 k/uL (0-1.0); Monocytes % (A) 4 %; Neutrophils # (A) 9.7 k/uL (1.3-7.7); Neutrophils % (A) 82 %; Platelet Count 152 k/uL (150-450); RDW 16.4 % (11.5-15.5); WBC 11.9 k/uL (3.8-10.6)
[2024-01-15 10:00] LABS: HGB 8.8 gm/dL (11.4-16.0)
--- NOTE | 2024-01-16 09:13 | P.PNOBGPC ---
Subjective - Subjective Principal diagnosis: S/P RLTCS with TL POD #2 Interval history: Patient seen and examined. Denies N/V, F/C, CP, SOB or calf pain. She is ambulating and voiding without difficulty. Baby is in the nursery on O2. Patient reports: Reports appetite normal, Reports voiding normally, Reports pain well controlled, Reports ambulating normally [place]: doing well Objective - Vital Signs Latest vital signs: Vital Signs Temp Pulse Resp BP Pulse Ox 01/16/24 00:00 98.0 F 93 16 121/78 98 01/15/24 16:00 98.8 F 84 14 135/76 Intake and Output 01/15/24 01/16/24 01/16/24 22:59 06:59 14:59 Other: # Voids 2 3 - Exam Lungs: bilateral: normal Chest: Normal S1, Normal S2 Extremities: Present: normal Abdomen: Present: normal appearance, soft. Absent: distention, tenderness Incision: Present: normal, dry, intact Uterus: Present: normal, firm - Labs Labs: Abnormal Lab Results - Last 24 Hours (Table) 01/15/24 Range/Units 08:47 WBC 11.9 H (3.8-10.6) k/uL RBC 3.30 L (3.80-5.40) m/uL Hgb 8.8 L D (11.4-16.0) gm/dL Hct 28.3 L (34.0-46.0) % RDW 16.4 H (11.5-15.5) % Neutrophils # 9.7 H (1.3-7.7) k/uL Assessment and Plan (1) Status post repeat low transverse section Current Visit: Yes Status: Acute Code(s): Z98.891 - HISTORY OF UTERINE SCAR FROM PREVIOUS SURGERY SNOMED Code(s): 533794311 (2) Status post tubal ligation at time of delivery, current hosp Current Visit: Yes Status: Acute Code(s): O80 - ENCOUNTER FOR FULL-TERM UNCOMPLICATED DELIVERY; Z30.2 - ENCOUNTER FOR STERILIZATION SNOMED Code(s): 21238105942713 Plan: 1. increase ambulatoin 2. cont po care
--- NOTE | 2024-01-16 10:24 | P.PN ---
Progress Note - Text 01/15/24 706am 38-year-old female status post . Patient seen and evaluated for postop pain control she has a VAS of 5 with no complaints of nausea vomiting and her pruritus has subsided. Doing well
--- NOTE | 2024-01-17 11:56 | P.PNOBGPC ---
Subjective - Subjective Principal diagnosis: Postop day 3, repeat section with bilateral tubal ligation Interval history: Patient is doing well postoperatively. She notes moderately good pain control, she is ambulating and voiding without difficulty. Tolerating regular diet without nausea or vomiting. She is pumping. remains in the nursery on high flow oxygen but they are weaning him currently. Patient reports: Reports appetite normal, Reports voiding normally, Reports ambulating normally [place]: doing well (In special care nursery) Objective - Vital Signs Latest vital signs: Vital Signs Temp Pulse Resp BP Pulse Ox 01/17/24 08:00 98.3 F 79 16 147/77 99 01/16/24 23:02 69 01/16/24 23:01 97.7 F 69 18 127/81 99 01/16/24 16:00 98.7 F 98 14 128/77 Intake and Output 01/16/24 01/17/24 01/17/24 22:59 06:59 14:59 Intake Total 960 Balance 960 Intake: Oral 960 Other: # Voids 1 2 2 - Exam Extremities: Present: normal, edema Abdomen: Present: normal appearance, soft Incision: Present: normal, dry, intact Uterus: Present: normal, firm Assessment and Plan (1) 36 to 37 weeks gestation of Current Visit: Yes Status: Acute Code(s): [id number] - SNOMED Code(s): 847508860 (2) History of Current Visit: Yes Status: Acute Code(s): Z98.891 - HISTORY OF UTERINE SCAR FROM PREVIOUS SURGERY SNOMED Code(s): 544033383 (3) Status post section Current Visit: Yes Status: Acute Code(s): Z98.891 - HISTORY OF UTERINE SCAR FROM PREVIOUS SURGERY SNOMED Code(s): 495673877 (4) Family planning Current Visit: Yes Status: Acute Code(s): Z30.09 - ENCOUNTER FOR OTH GENERAL CNSL AND ADVICE ON CONTRACEPTION SNOMED Code(s): 993592940 Plan: Patient is doing well postoperatively. Plan to continue routine postoperative care and anticipate discharge home tomorrow.
[2024-01-18] MEDS: LABETALOL 100 MG TAB PO STA (09:57)
[2024-01-18 11:29] LABS: ALT 104 U/L (4-34); AST 66 U/L (14-36); African American GFR (CKD) >90 (>60 ml/min/1.73 sqM); Blood Urea Nitrogen 10 mg/dL (7-17); LDH 258 U/L (120-246); Magnesium 1.9 mg/dL (1.6-2.3); Non-African American GFR(CKD) >90 (>60 ml/min/1.73 sqM); Uric Acid 2.5 mg/dL (3.7-7.4)
[2024-01-18 11:32] LABS: Anisocytosis Slight; Basophils % (A) 0 %; Eosinophils # (A) 0.1 k/uL (0-0.7); Eosinophils % (A) 2 %; HCT 29.8 % (34.0-46.0); HGB 9.4 gm/dL (11.4-16.0); Hypochromasia Slight; Lymphocytes # (A) 1.6 k/uL (1.0-4.8); Lymphocytes % (A) 23 %; MCH 27.5 pg (25.0-35.0); MCHC 31.6 g/dL (31.0-37.0); MCV 86.9 fL (80.0-100.0); Mean Platelet Volume 8.8; Monocytes # (A) 0.4 k/uL (0-1.0); Monocytes % (A) 5 %; Neutrophils % (A) 69 %; Platelet Count 203 k/uL (150-450); RBC 3.43 m/uL (3.80-5.40); RDW 16.3 % (11.5-15.5); WBC 7.3 k/uL (3.8-10.6)
--- NOTE | 2024-01-18 13:18 | P.PNOBGPC ---
Subjective - Subjective Principal diagnosis: Postop day 4, gestational hypertension Interval history: Patient is doing overall well. She did have 2 elevated blood pressures this morning which she was treated with 100 mg of labetalol. Patient notes a slight headache. Awaiting preeclampsia labs. Patient reports: Reports appetite normal, Reports voiding normally, Reports pain well controlled, Reports ambulating normally [place]: doing well (in [place]N) Objective - Vital Signs Latest vital signs: Vital Signs Temp Pulse Resp BP Pulse Ox 01/18/24 10:50 119/76 01/18/24 09:00 172/82 01/18/24 08:00 98.5 F 73 16 168/94 99 01/18/24 00:00 97.9 F 77 16 119/72 98 01/17/24 16:00 97.8 F 80 16 130/83 99 Intake and Output 01/17/24 01/18/24 01/18/24 22:59 06:59 14:59 Other: # Voids 2 2 2 - Exam Extremities: Present: normal, edema Abdomen: Present: normal appearance Incision: Present: normal, dry, intact Uterus: Present: normal, firm - Labs Labs: Abnormal Lab Results - Last 24 Hours (Table) 01/18/24 01/18/24 Range/Units 10:50 10:50 RBC 3.43 L (3.80-5.40) m/uL Hgb 9.4 L (11.4-16.0) gm/dL Hct 29.8 L (34.0-46.0) % RDW 16.3 H (11.5-15.5) % Creatinine 0.51 L (0.52-1.04) mg/dL Uric Acid 2.5 L (3.7-7.4) mg/dL AST 66 H (14-36) U/L ALT 104 H (4-34) U/L Lactate Dehydrogenase 258 H (120-246) U/L Assessment and Plan (1) 36 to 37 weeks gestation of Current Visit: Yes Status: Acute Code(s): [id number] - SNOMED Code(s): 097272832 (2) History of Current Visit: Yes Status: Acute Code(s): Z98.891 - HISTORY OF UTERINE SCAR FROM PREVIOUS SURGERY SNOMED Code(s): 250114115 (3) Status post section Current Visit: Yes Status: Acute Code(s): Z98.891 - HISTORY OF UTERINE SCAR FROM PREVIOUS SURGERY SNOMED Code(s): 561555381 (4) Family planning Current Visit: Yes Status: Acute Code(s): Z30.09 - ENCOUNTER FOR OTH GENERAL CNSL AND ADVICE ON CONTRACEPTION SNOMED Code(s): 571017837 Plan: Postop day 4, repeat section with bilateral tubal ligation, elevated blood pressures this morning controlled with 100 mg of labetalol. Will monitor blood pressures closely, and await preeclampsia labs.
[2024-01-19 01:45] VITALS: RESP 16
[2024-01-19 16:41] VITALS: BP 130/82; PULSE 62; TEMP 98.1
== END 2024-01-19 17:40 | disposition home or self-care (01) | DRG 539 ==
LOC: 4FBP 07:53
PROVIDERS: ADMIT Obstetrics & Gynecology Obstetrics; ATTEND Obstetrics & Gynecology Obstetrics
PROC: 0UB70ZZ Excision of Bilateral Fallopian Tubes, Open Approach (ICD-10-PCS; 2024-01-14)
PROC: 10D00Z1 Extraction of Products of Conception, Low, Open Approach (ICD-10-PCS; principal; 2024-01-14 10:00)
DX: O34.211 Maternal care for low transverse scar from previous cesarean delivery (principal); K66.0 Peritoneal adhesions (postprocedural) (postinfection); O40.3XX0 Polyhydramnios, third trimester, not applicable or unspecified; O32.2XX0 Maternal care for transverse and oblique lie, not applicable or unspecified; R51.9 Headache, unspecified; O13.5 Gestational [pregnancy-induced] hypertension without significant proteinuria, complicating the puerperium; Z37.0 Single live birth; Z30.2 Encounter for sterilization; Z87.891 Personal history of nicotine dependence; Z88.5 Allergy status to narcotic agent; Z91.040 Latex allergy status; Z88.0 Allergy status to penicillin; Z3A.36 36 weeks gestation of pregnancy
CPT/HCPCS: 82565; 83615; 83735; 84450; 84460; 84520; 84550; 85025; 85461; 86850; 86900; 86901; 88307